=== PATIENT | female | born 1960 | race Caucasian/White ===

== ENCOUNTER 2016-10-05 17:43 | Observation (INO) ==
--- NOTE | 2016-10-05 19:42 | Emergency Department Note ---
Disposition Clinical Impression: Pain in right leg Deep vein thrombosis of lower extremity Qualifiers: Affected thrombotic vein of extremity: popliteal Chronicity: acute Laterality: right Qualified Code(s): I82.431 - Acute embolism and thrombosis of right popliteal vein GI bleed Qualifiers: GI bleed type/associated pathology: unspecified gastrointestinal hemorrhage type Qualified Code(s): K92.2 - Gastrointestinal hemorrhage, unspecified Disposition: Admitted As Inpatient Condition: Good Instructions: Deep Venous Thrombosis (ED) Reasons to Return/Additional Instructions: Please follow closely with your primary care provider. Please take all medications as they are prescribed. If you are concerned about your medical condition or if your symptoms change please return immediately to the emergency room for repeat evaluation. Please follow the return precautions that were discussed in great detail here in the emergency room prior to you being discharged home. Please take all of your home medications as they are prescribed. Please be sure to keep a close eye on her bowel movements looking for dark stool or blood. Please follow up with her primary care provider within the next 24-48 hours Referrals: Delonte Guillaume MD [Primary Care Provider] - Forms: ED Satisfaction Letter Time of Disposition: 21:07 Extremity Problem HPI - General Chief complaint: ED Extremity Problem,Nontraumatic Stated complaint: pain in right leg r/o DVT Time Seen by Provider: 10/05/16 18:30 Source: patient Mode of arrival: ambulatory Limitations: no limitations Nursing Notes Reviewed: Yes Vital Signs Reviewed: Yes - History of Present Illness HPI Narrative: Patient presents to emergency room with complaint of right leg pain. She is concerned about a blood clot in her leg. She was seen here several days ago and had a Doppler study completed at that time. The symptoms impalement getting worse. She denies any redness pain warmth or swelling over the leg that is significantly different than last time. She is a Oriental orthodox and want to make sure that she did not get a blood clot because she did not want to have a bleeding issue that would require medical intervention. Patient denies fevers chills nausea vomiting diarrhea headaches vision changes prior to these events here today. Pt Subjective Complaint: extremity pain Onset (ago): day(s) Consistency: constant Injury Location: right, lower extremity Pain Scale: 8 Quality: aching Radiation: distal Improves with: nothing Worsens with: range of motion, walking, palpation Associated symptoms: Reports: denies other symptoms - Related Data Previous Rx's Medication Instructions Recorded Naproxen [Naprosyn] 500 mg PO BID PRN #20 tablet 09/23/16 Allergies Allergy/AdvReac Type Severity Reaction Status Date / Time codeine Allergy Difficulty Verified 10/05/16 17:44 Breathing propoxyphene Allergy Difficulty Verified 10/05/16 17:44 Breathing Sulfa (Sulfonamide Allergy Difficulty Verified 10/05/16 17:44 Antibiotics) Breathing tramadol Allergy Difficulty Verified 10/05/16 17:44 Breathing naproxen AdvReac See Verified 10/05/16 17:45 Comments All systems ED: reviewed and negative except as stated. Review of Systems: As Per HPI Constitutional: Denies: fever, chills Cardiovascular: Denies: chest pain, palpitations, dyspnea on exertion, orthopnea Respiratory: Denies: cough, dyspnea, wheezes Gastrointestinal: Denies: abdominal pain, nausea, vomiting, diarrhea Genitourinary: Denies: urgency, dysuria Musculoskeletal: Reports: joint swelling. Denies: back pain, neck pain Integumentary: Denies: rash, abrasion, lesions Neurological: Denies: headache Psychiatric: Denies: anxiety Hematological/Lymphatic: Denies: easy bleeding Past Medical History - Past Medical History Attestation: Yes The following information was validated with the patient. Source: patient Medical history: Reports: asthma, coronary artery disease, GERD, thyroid disease Surgical history: Reports: splenectomy Psychiatric history: Reports: anxiety, depression - Social History Smoking Status: Never smoker Smokeless Tobacco Status: No Alcohol use: Reports: none Drug use: Reports: none Physical Exam - General Limitations: no limitations General appearance: alert - Head Head exam: atraumatic, normocephalic, normal inspection - Neck Neck exam: Present: normal inspection, full ROM, trachea midline - Chest Chest inspection: Present: normal inspection, symmetric chest wall rise. Absent : tenderness - Respiratory Respiratory exam: Present: normal lung sounds bilaterally. Absent: respiratory distress, accessory muscle use - Cardiovascular Cardiovascular exam: Present: regular rate, normal rhythm, normal heart sounds - Abdominal Exam Abdominal exam: Present: soft, Non-Tender, normal bowel sounds. Absent: tenderness, distention, guarding, rebound, rigidity, Yates's sign, Rovsing's sign, tenderness at McBurney's Point - Extremities Exam Extremities exam: Present: normal inspection, full ROM, normal capillary refill , calf tenderness. Absent: tenderness - Back Exam Back exam: Present: normal inspection, full ROM. Absent: tenderness, CVA tenderness (R), CVA tenderness (L) - Neurological Exam Neurological exam: Present: alert, oriented X3, CN II-XII intact, normal gait - Skin Skin exam: Present: warm, dry, intact, normal color Course Course Narrative: Patient seen and examined the time of arrival. See history of present illness. 56-year-old female presents with pain in her right calf. She has been seen here twice for the same issue over the last 1 week. She was evaluated for deep venous thrombosis because she is concerned about a blood clot in her leg. Initial Doppler study at that time was read as negative. She is back here tonight with new palpable pain in the lateral aspect of the calf as well as in the medial aspect of the palpable cord that is noted. She does have tenderness directly over that area. Otherwise there is no redness swelling irritation noted to the extremity. She has no gross deformity or injury. Based on the symptoms being present for approximately a week at this time. Repeat ultrasound ordered to make sure that there was not any progression or change in the presentation at this time. Otherwise patient has stable vital signs. No other clinical evaluation needed. Currently she is denying chest pain shortness of breath headache vision changes nausea vomiting or diarrhea. Denies any other complaints or issues at this time. - Reevaluation(s) Reevaluation #1: Ultrasound study was read as positive for acute DVT in the right popliteal region of the catheter. Patient had screening labs completed this time including Hemoccult testing secondary to dark colored stool over the last week. Patient otherwise denies any other acute bleeding or issues at this point. If the testing studies come back negative the patient will be started on anticoagulation therapy for home and close follow-up with PCP. Patient family and I discussed this in great detail. Again she is a Oriental orthodox so being conservative with reading related issues is priority for her at this time. No other concerns or issues noted at this point. Disposition pending laboratory workup Time: 20:48 Reevaluation #2: Patient has Hemoccult-positive stool. Will be admitted at this time for evaluation with possible endoscopy and then anticoagulation therapy secondary to the DVT. Time: 21:02 Reevaluation #3: pt discussed with dr. fagan. Review the presentation symptoms and the confounding issues with the GI bleed and DVT. Reviewed the presentation symptoms and the vital signs in the emergency room. He is going to evaluate the patient done in the emergency room. No other recommendations at this time. We will monitor here in the emergency room to the admission process is completed Time: 21:16 Vital Signs Temperature 97.7 F 10/05/16 17:46 Pulse Rate 73 10/05/16 17:46 Respiratory Rate 20 10/05/16 17:46 Blood Pressure 113/78 10/05/16 17:46 O2 Sat by Pulse Oximetry 97 10/05/16 17:46 Temperature 97.7 F 10/05/16 17:46 Pulse Rate 73 10/05/16 17:46 Respiratory Rate 20 10/05/16 17:46 Blood Pressure 113/78 10/05/16 17:46 O2 Sat by Pulse Oximetry 97 10/05/16 17:46 Oxygen Delivery Oxygen Delivery Room Air Extremity Problem, Nontraumati - MDM Narrative Medical decision making narrative: Right lower extremity DVT - Medical Records Medical records reviewed: Yes I reviewed the patient's medical records. - Lab Data Lab results reviewed: Yes I reviewed the patient's lab results. - Radiology Data Radiology results reviewed: Yes I reviewed the patient's radiology results. Ultrasound imaging of the right lower cavity shows positive acute DVT in the right popliteal distribution Critical Care Time Critical Care Time: Yes Total Critical Care Time: 35 Attestation: Critical care performed: Time is exclusive of separately billable procedures. Time includes: direct patient care, patient reassessment, coordination of patient care, interpretation of data (laboratory data, radiology data, and respiratory data), review of patient's medical records, medical consultation and documentation of patient care. Procedures included in critical care time: Procedures excluded from critical care time:
[2016-10-05 20:10] LABS: Basophils # 0.1 K/mcL (0.0-0.2); Basophils % 0.4 %; Eosinophils # 0.5 K/mcL (0.0-0.6); Eosinophils % 2.9 %; Hematocrit 38.9 % (35.3-44.9); Hemoglobin 12.7 g/dL (11.5-15.4); Immature Granulocytes % 0.6 % (0-4); Lymphocytes # 5.7 K/mcL (0.6-4.6); Lymphocytes % 36.4 %; Mean Corpuscular HGB Conc 32.6 g/dL (31.6-35.5); Mean Corpuscular Hemoglobin 29.3 pg (28.0-33.3); Mean Corpuscular Volume 89.8 fL (83.0-100.0); Mean Platelet Volume 10.3 fL (9.4-12.4); Monocytes # 1.2 K/mcL (0.0-1.3); Monocytes % 7.6 %; Neutrophils # 8.2 K/mcL (1.6-8.9); Platelet Count 374 K/mcL (140-400); Red Blood Count 4.33 M/mcL (3.82-4.97); Red Cell Distribution Width 15.1 % (11.5-14.5); Segmented Neutrophils % 52.1 %
[2016-10-05 20:12] LABS: INR 1.1; Prothrombin Time 11.7 Seconds (9.4-12.1)
[2016-10-05 20:15] LABS: Activated Partial Thrombo Time 29.3 Seconds (26.0-36.0)
[2016-10-05 20:19] LABS: Calcium 9.9 mg/dL (8.6-10.8); Potassium 4.4 mEq/L (3.5-4.5)
[2016-10-05] MEDS ORDERED: Pantoprazole 80 MG in 0.9 % Sodium Chloride 50 ML IVPB ONE (21:06)
[2016-10-05] MEDS ORDERED: Naloxone 0.4 MG/ML INJ IVP PRN (22:13)
[2016-10-05] MEDS ORDERED: *HR* Morphine 2 MG/ML SYRINGE IVP PRN (22:17)
--- NOTE | 2016-10-05 22:26 | Internal Med History&Physical ---
<Marina Buck - Last Filed: 10/05/16 22:59> Date of Encounter: 10/05/16 Time of Encounter: 22:25 Assessment and Plan (1) Deep vein thrombosis of lower extremity Current visit: Yes Status: Acute Patient reporting RLE pain and swelling. Venous doppler revealed acute DVT in right popliteal and anterior tibial veins. Patient also with suspected GI bleed with +FOB. Will plan to start anticoagulation once endoscopy rules out active bleed. Surgery has been consulted for endoscopy. Continuous patient services assistant. Qualifiers: Affected thrombotic vein of extremity: popliteal Chronicity: acute Laterality: right Qualified Code(s): I82.431 - Acute embolism and thrombosis of right popliteal vein (2) GI bleed Current visit: Yes Status: Acute Patient reports that after starting naproxen, she had an episode of abdominal cramping followed by a large amount of bright red bloody bowel movement on September 23. She stopped taking the Naproxen at that time. She has had diarrhea since then, which is normal for her, but has not noted any more episodes of bright red blood. Fecal occult blood was positive. Hgb stable at 12.7. Hold aspirin, NSAIDs. Protonix 80mg given in ED. Continue with 40mg IVP BID. Surgery consulted for endoscopy urgently as patient needs anticoagulation treatment for acute DVT. Patient is [employer] and will not accept blood products. Qualifiers: GI bleed type/associated pathology: unspecified gastrointestinal hemorrhage type Qualified Code(s): K92.2 - Gastrointestinal hemorrhage, unspecified (3) LATHA (acute kidney injury) Current visit: Yes Status: Acute Creatinine of 1.25 today up from previous value of 0.92. Patient was started on metoprolol-HCTZ in August and this may be secondary to diuresis. Will hydrate with 0.9NS at 125mL/hr. Hold NSAIDs and nephrotoxins, hold HCTZ. Recheck chemistry in the morning. (4) CAD (coronary artery disease) Current visit: Yes Status: Acute Patietn had LHC in 2012 which revealed mild-moderate coronary artery atherosclerosis. 40% stenosis in mid-LAD. She did not require PCI. She has recently seen Dr. Jarrett in cardiology and she takes Metoprolol-HCTZ, statin and aspirin. Hold aspirin for suspected GI bleed. Once taking PO, continue home dose of metoprolol and statin. Qualifiers: Coronary Disease-Associated Artery/Lesion type: teller artery [place] vs. transplanted heart: teller heart Associated angina: angina presence unspecified Qualified Code(s): I25.10 - Atherosclerotic heart disease of teller coronary artery without angina pectoris (5) DVT prophylaxis Current visit: Yes Status: Acute Patient has acute DVT in RLE, but also suspected GI bleed. Will start anticoagulation after endoscopy rules out acute bleed. Internal Medicine - H&P: HPI Chief complaint: leg pain Admitted From: Emergency Dept Plans for Post Hospital Care: Home History of present illness: Ms. Concepcion is a 56 year old female with hypertension, hyperlipidemia, coronary artery disease GERD, hypothyroid, presented to the emergency department today with complaints of right lower extremity pain and swelling. Patient reports that she injured her foot a few weeks ago, she thinks it got slammed in a car door, but she also remembers stepping on it wrong, cough.. After this injury she had some swelling and pain in her leg for which she was treated with naproxen. She reports that when she started taking the naproxen on September 23, she had an episode of bright red bloody bowel movement. After that she stop taking the naproxen and she reports her stools returned to normal. Patient continued to have pain and swelling in her right leg, and added To 3 days ago, at that time ultrasound was negative for DVT. She returned again today, and ultrasound was positive for acute right lower extremity DVT. Patient reports occasional lightheadedness, occasional nausea, diarrhea, occasional chest pain, all these symptoms are chronic and have been occurring for years. She reports she has had several colonoscopies in the past related to her diarrhea, nothing significant was found other than polyps, and a "torturous colon". Evaluation in emergency department revealed elevated white blood cell count of 15.8. Doppler of the lower extremity revealed acute DVT of the popliteal and anterior tibial veins. Creatinine was elevated to 1.25 above previous value of 0.92. Patient denies any history of chronic kidney disease. Fecal occult blood was positive. On exam, patient alert and oriented, in no acute distress. Heart had regular rate and rhythm lungs sounded clear bilaterally. Abdomen soft with positive bowel sounds, some tenderness in the right lower quadrant. Right lower extremity with tenderness to palpation in the popliteal area. Past Med Surg Social Fam HX - Past Medical History Medical history: asthma, coronary artery disease, GERD, thyroid disease Psychiatric history: anxiety, depression - Past Surgical History Surgical History: splenectomy, vascular surgery (vein stripping) - Social History Smoking Status: Former smoker (50 pack year history) Smokeless Tobacco Status: No Alcohol use: none Drug use: none - Family History Mother Living Status: Still Living Hx Family Cardiac Disorders: Yes Hx Family Cancer: Yes (colon) Father Living Status: Hx Family Cardiac Disorders: Yes Brother Living Status: Still Living Hx Family Cardiac Disorders: Yes (DVTs) Internal Medicine - H&P: Meds Aspirin [Lo-Dose Aspirin EC] 81 mg PO DAILY 10/05/16 [History] BuPROPion XL (24 HR) [Wellbutrin XL] 150 mg PO DAILY 10/05/16 [History] Calcium Carbonate/Vitamin D3 [Calcium 500 + Vit D Caplet] 1 each PO DAILY [History] Cetirizine HCl [All Day Allergy] 10 mg PO DAILY 10/05/16 [History] Famotidine [Pepcid] 40 mg PO DAILY 10/05/16 [History] Ibuprofen [Motrin] 200 mg PO Q4HR PRN 10/05/16 [History] Levothyroxine Sodium 75 mcg PO 0630 10/05/16 [History] Metoprolol Succinate/Hctz [Dutoprol 25-12.5 mg Tablet] 0.5 tab PO BID 10/05/16 [ History] Pantoprazole Sodium [Protonix] 40 mg PO DAILY 10/05/16 [History] Pravastatin Sodium [Pravachol] 20 mg PO HS 10/05/16 [History] Allergies codeine Allergy (Verified 10/05/16 17:44) Difficulty Breathing propoxyphene Allergy (Verified 10/05/16 17:44) Difficulty Breathing Sulfa (Sulfonamide Antibiotics) Allergy (Verified 10/05/16 17:44) Difficulty Breathing tramadol Allergy (Verified 10/05/16 17:44) Difficulty Breathing naproxen Adverse Reaction (Verified 10/05/16 17:45) See Comments blood in stool All Systems PM: A 10-system review of systems was performed and is negative for pertinent findings except as documented above in the HPI. - Constitutional Constitutional: no chills, no fever(s), no night sweats - EENT Eyes: no change in vision, no discharge, no pain, no photophobia Ears: no ear discharge, no ear pain, no tinnitus Nose, mouth and throat: no dysphagia, no nasal discharge, no neck pain, no sore throat - Cardiovascular Cardiovascular ROS IM: no chest pain, no diaphoresis, no dyspnea, no lightheadedness, no palpitations, no syncope - Respiratory Respiratory: no cough, no dyspnea, no wheezing, no excessive phlegm production - Gastrointestinal Gastrointestinal: cramping, diarrhea (chronic), hematochezia (one episode on September 23), no abdominal pain, no hematemesis, no melena, no nausea, no vomiting - Genitourinary Genitourinary: no change in urinary stream, no dysuria, no flank pain, no hematuria - Musculoskeletal Musculoskeletal ROS IM: no numbness, no tingling Additional comments: RLE pain - Integumentary Integumentary IM: no rash, no unusual bruising - Neurological Neurological ROS: no confusion, no convulsions, no focal weakness, no numbness, no tingling, no tremor(s) - Hematologic/Lymphatic Hematologic/Lymphatic: no easy bruising - Constitutional Vitals: Temp Pulse Resp BP Pulse Ox 97.7 F 75 18 131/92 95 10/05/16 17:46 10/05/16 22:18 10/05/16 22:18 10/05/16 22:18 10/05/16 22:18 General appearance: Present: A&O X 3, pleasant, no acute distress - Head Head exam: Present: atraumatic, normocephalic - Eye Eye exam: Present: PERRL, conjuntiva pink, sclera anicteric Pupils: Present: PERRL - Neck Neck exam general surgery: Present: supple, trachea midline. Absent: lymphadenopathy - Respiratory Respiratory exam: Present: CTAB. Absent: accessory muscle use, rales, rhonchi, wheezes - Cardiovascular Cardiovascular exam: Present: RRR, +S1, +S2. Absent: diastolic murmur, gallop, rubs, systolic murmur - GI/Abdominal GI/Abdominal exam: Present: normal bowel sounds, soft, tenderness (RLQ), no peritoneal signs. Absent: distended - Extremities Exam Extremities exam: Present: calf tenderness (RLE), warm, radial pulses palpable and symetrical. Absent: cyanotic, pedal edema - Neurological Exam Neurological exam: Present: CN II-XII intact, oriented X3, no focal deficits. Absent: facial droop, speech deficit - Skin Skin exam: Present: dry, intact Internal Med - H&P Results - Labs CBC & Chem 7: 10/05/16 19:55 10/05/16 19:55 Labs: All Lab Results (24 Hours) 10/05/16 10/05/16 10/05/16 Range/Units 19:55 19:55 19:55 WBC 15.8 H (4.3-11.1) K/mcL RBC 4.33 (3.82-4.97) M/mcL Hgb 12.7 (11.5-15.4) g/dL Hct 38.9 (35.3-44.9) % MCV 89.8 (83.0-100.0) fL MCH 29.3 (28.0-33.3) pg MCHC 32.6 (31.6-35.5) g/dL RDW 15.1 H (11.5-14.5) % Plt Count 374 (140-400) K/mcL MPV 10.3 (9.4-12.4) fL Immature Gran % 0.6 (0-4) % Seg Neutrophils % 52.1 % Lymphocytes % 36.4 % Monocytes % 7.6 % Eosinophils % 2.9 % Basophils % 0.4 % Neutrophils # 8.2 (1.6-8.9) K/mcL Lymphocytes # 5.7 H (0.6-4.6) K/mcL Monocytes # 1.2 (0.0-1.3) K/mcL Eosinophils # 0.5 (0.0-0.6) K/mcL Basophils # 0.1 (0.0-0.2) K/mcL PT 11.7 (9.4-12.1) Seconds INR 1.1 APTT 29.3 (26.0-36.0) Seconds Sodium 140 (136-145) mEq/L Potassium 4.4 (3.5-4.5) mEq/L Chloride 105 (98-109) mEq/L Carbon Dioxide 26 (19-29) mEq/L BUN 19 (7-20) mg/dL Creatinine 1.25 H (0.57-1.11) mg/dL Est GFR ( Amer) 54 L (> 60) Est GFR (Non-Af Amer) 44 L (> 60) BUN/Creatinine Ratio 15 (6-26) Glucose 91 (70-99) mg/dL Calculated Osmolality 292 (280-300) Calcium 9.9 (8.6-10.8) mg/dL Stool Occult Blood (Negative) 10/05/16 Range/Units 20:28 WBC (4.3-11.1) K/mcL RBC (3.82-4.97) M/mcL Hgb (11.5-15.4) g/dL Hct (35.3-44.9) % MCV (83.0-100.0) fL MCH (28.0-33.3) pg MCHC (31.6-35.5) g/dL RDW (11.5-14.5) % Plt Count (140-400) K/mcL MPV (9.4-12.4) fL Immature Gran % (0-4) % Seg Neutrophils % % Lymphocytes % % Monocytes % % Eosinophils % % Basophils % % Neutrophils # (1.6-8.9) K/mcL Lymphocytes # (0.6-4.6) K/mcL Monocytes # (0.0-1.3) K/mcL Eosinophils # (0.0-0.6) K/mcL Basophils # (0.0-0.2) K/mcL PT (9.4-12.1) Seconds INR APTT (26.0-36.0) Seconds Sodium (136-145) mEq/L Potassium (3.5-4.5) mEq/L Chloride (98-109) mEq/L Carbon Dioxide (19-29) mEq/L BUN (7-20) mg/dL Creatinine (0.57-1.11) mg/dL Est GFR ( Amer) (> 60) Est GFR (Non-Af Amer) (> 60) BUN/Creatinine Ratio (6-26) Glucose (70-99) mg/dL Calculated Osmolality (280-300) Calcium (8.6-10.8) mg/dL Stool Occult Blood Positive A (Negative) <Shoaib Patrick - Last Filed: 10/06/16 05:58> Date of Encounter: 10/06/16 Internal Medicine - H&P: HPI History of present illness: Ms. Taulbee is a 56 year old female All Systems PM: A 10-system review of systems was performed and is negative for pertinent findings except as documented above in the HPI. - Constitutional Vitals: Temp Pulse Resp BP Pulse Ox 98.2 F 74 18 95/59 95 10/06/16 05:33 10/06/16 05:33 10/06/16 05:33 10/06/16 05:33 10/06/16 05:33 Internal Med - H&P Results - Labs CBC & Chem 7: 10/06/16 00:59 10/06/16 00:59 Labs: Short CBC 10/06/16 Range/Units 00:59 WBC 15.0 H (4.3-11.1) K/mcL Hgb 12.7 (11.5-15.4) g/dL Hct 37.7 (35.3-44.9) % Plt Count 347 (140-400) K/mcL Neutrophils # 8.5 (1.6-8.9) K/mcL BMP 10/06/16 00:59 Sodium 140 Potassium 3.7 Chloride 106 Carbon Dioxide 25 BUN 17 Creatinine 1.07 Glucose 92 Calcium 9.4 - Attending Attestation I independently obtained history and examined this patient and my medical decision-making was reviewed with the nurse practitioner, Marina Buck. I agree with the documented findings, disposition and treatment plan as described. Please see the event note from 10/05/2016 for further details.
--- NOTE | 2016-10-05 22:28 | Event Note ---
Date of Encounter: 10/05/16 Time of Encounter: 22:19 I independently obtained history and examined this patient and my medical decision-making was reviewed with the nurse practitioner, Marina Buck. I agree with the documented findings, disposition and treatment plan as described. My findings are summarized below: Patient presented to the hospital due to right lower extremity pain. She had a lower extremity Doppler venous ultrasound which shows findings concerning for superacute right lower extremity DVT in the popliteal vein. She tells me that 3 weeks ago she had been taking naproxen for foot pain and she started having severe abdominal pain followed by rectal bleeding which was described as large amount of dark blood with blood clots in it. She stopped taking the naproxen and per her reports that had resolved. Today she tested positive Hemoccult on fecal occult blood testing. Her vital signs are stable and her Hemoglobin is 12.8. Plan: Ms. Concepcion an acute right lower extremity DVT and the recent upper GI bleed as well as a positive Hemoccult. The positive Hemoccult could be a lingering effect of a resolved bleed such as from erosive gastritis caused by use of nonsteroidal anti-inflammatory drugs. It could also be related to a bleeding peptic ulcer. This is of more concern because the patient has had a history of duodenal ulcers and if this were the case anticoagulation for her acute DVT would be contraindicated. This is further complicated by the fact the patient is a Jehov[employer]'s witnesses and according to her convictions she would like to not have any blood or blood product transfusion. At this time I have discussed the case with Dr. Barnhart will evaluate the patient for emergent upper endoscopy to evaluate and diagnose the source of GI bleed. If the endoscopy result is negative we will start IV heparin for anticoagulation and monitor hemoglobin and hematocrit closely. If the endoscopy result is positive for acute or subacute bleeding then anticoagulation is contraindicated and we will plan for placement of an IVC filter in the morning. She is at high risk for morbidity and complications due to hyperacute DVT and acute versus subacute GI bleed possibly requiring emergent endoscopic procedure and intravenous anticoagulation.
[2016-10-05] MEDS ORDERED: *HR* FentaNYL (PF) 100 MCG/2 ML VIAL ONE (23:11)
[2016-10-05] MEDS ORDERED: *HR* Midazolam HCl 5 MG/5 ML VIAL IVP ONE (23:12)
[2016-10-05] MEDS ORDERED: 0.9 % Sodium Chloride 1,000 ML IVC SCH (23:15)
[2016-10-05] MEDS ORDERED: *HR* FentaNYL (PF) 100 MCG/2 ML VIAL IVP PRN (23:17)
[2016-10-05] MEDS ORDERED: *HR* Midazolam HCl 5 MG/5 ML VIAL IVP PRN (23:17)
[2016-10-05] MEDS ORDERED: Tetracaine/Benzocaine/Butamben 200MG/SPRAY (100SPY/BOT) MM ONE (23:17)
--- NOTE | 2016-10-05 23:17 | Pre-Sedation Evaluation ---
Pre-sedation evaluation - Pre-sedation checklist Date of procedure: 10/05/16 Recent Vitals: Last Vital Signs Temp 97.8 F 10/05/16 23:08 Pulse 85 10/05/16 23:08 Resp 16 10/05/16 23:08 BP 136/82 10/05/16 23:08 Pulse Ox 98 10/05/16 23:08 H&P (including ROS) documented in medical record: Yes Previous reaction to sedatives/anesthetics: No Dietary Status: NPO after Midnight Airway Assessment: Patient can open mouth completely, TMJ function normal Dentition: dentures removed Possible difficult airway: No ASA Classification *see protocol: CLASS III-Severe systemic disease
[2016-10-05] MEDS: 0.9 % Sodium Chloride 1,000 ML IVC SCH (23:22)
--- NOTE | 2016-10-05 23:28 | Event Note ---
Date of Encounter: 10/05/16 Time of Encounter: 23:27 Hiatal hernia, otherwise normal egd to the 3 rd portion of the doudenum.
[2016-10-06] MEDS ORDERED: *HR* Heparin 5,000 UNIT/ML VIAL IVP PRN (01:01)
[2016-10-06] MEDS ORDERED: *HR* Heparin 5,000 UNIT/ML VIAL IVP ONE (01:01)
--- NOTE | 2016-10-06 01:06 | Event Note ---
Date of Encounter: 10/06/16 Time of Encounter: 01:05 Patient had upper endoscopy done emergently this evening. She tolerated the procedure well. Endoscopy revealed no evidence of upper GI bleed. Her Hemoccult could be related to a lower GI bleed or lingering effect of a result hemorrhagic gastritis and resulted by nonsteroidal anti-inflammatory drug use. At this point I do not have any strong concern for impending GI bleed and therefore I will start treatment with IV heparin for right lower extremity DVT.
[2016-10-06] MEDS: Heparin 25,000 UNIT/500 ML D5W 25,000 UNIT/500 ML MLS IVC SCH ×2 (01:52→21:45)
[2016-10-06 02:03] LABS: Basophils # 0.1 K/mcL (0.0-0.2); Basophils % 0.4 %; Eosinophils # 0.4 K/mcL (0.0-0.6); Eosinophils % 2.7 %; Hematocrit 37.7 % (35.3-44.9); Hemoglobin 12.7 g/dL (11.5-15.4); Immature Granulocytes % 0.4 % (0-4); Lymphocytes # 4.8 K/mcL (0.6-4.6); Lymphocytes % 32.3 %; Mean Corpuscular HGB Conc 33.7 g/dL (31.6-35.5); Mean Corpuscular Hemoglobin 30.2 pg (28.0-33.3); Mean Corpuscular Volume 89.5 fL (83.0-100.0); Monocytes # 1.1 K/mcL (0.0-1.3); Monocytes % 7.2 %; Neutrophils # 8.5 K/mcL (1.6-8.9); Platelet Count 347 K/mcL (140-400); Red Blood Count 4.21 M/mcL (3.82-4.97); Red Cell Distribution Width 15.3 % (11.5-14.5)
[2016-10-06 02:13] LABS: INR 1.1; Prothrombin Time 11.6 Seconds (9.4-12.1)
[2016-10-06 02:15] LABS: Activated Partial Thrombo Time 24.3 Seconds (26.0-36.0)
[2016-10-06 02:29] LABS: BUN/Creatinine Ratio 16 (6-26); Blood Urea Nitrogen 17 mg/dL (7-20); Calcium 9.4 mg/dL (8.6-10.8); Carbon Dioxide 25 mEq/L (19-29); Chloride 106 mEq/L (98-109); Glucose 92 mg/dL (70-99); Osmolality,Calculated 291 (280-300); Potassium 3.7 mEq/L (3.5-4.5); Sodium 140 mEq/L (136-145); eGFR For African Americans > 60 (> 60); eGFR For Non-African Americans 53 (> 60)
[2016-10-06] MEDS ORDERED: Pantoprazole 40 MG VIAL IVP SCH (07:30)
[2016-10-06] MEDS: BuPROPion XL (24 HR) 150 MG TABLET PO SCH (07:51)
[2016-10-06 08:30] LABS: Activated Partial Thrombo Time 149.5 Seconds (26.0-36.0)
[2016-10-06 08:36] LABS: Hematocrit 38.4 % (35.3-44.9); Hemoglobin 12.4 g/dL (11.5-15.4)
[2016-10-06 08:47] LABS: Heparin anti-factor XA UFH 0.96 IU/mL (0.30-0.70)
[2016-10-06] MEDS: 0.9 % Sodium Chloride 1,000 ML IVC SCH (10:11)
--- NOTE | 2016-10-06 10:47 | Internal Med Progress Note ---
<Josef Sotomayor - Last Filed: 10/06/16 10:44> Date of Encounter: 10/06/16 Time of Encounter: 10:45 - Assessment and plan (1) Deep vein thrombosis of lower extremity Current Visit: Yes Status: Acute Assessment and plan: Patient reporting RLE pain and swelling. -Venous doppler revealed acute DVT in right popliteal and anterior tibial veins. -Patient states that her leg is still swollen, but the initial redness is gone. -There is still tenderness to palpation in the popliteal region in the right lower extremity. -Continue heparin. -Continuous cardiac care unit nurse. Qualifiers: Affected thrombotic vein of extremity: popliteal Chronicity: acute Laterality: right Qualified Code(s): I82.431 - Acute embolism and thrombosis of right popliteal vein (2) DVT prophylaxis Current Visit: Yes Status: Acute Assessment and plan: Patient has acute DVT in the right lower extremity. Patient is currently on heparin. (3) LATHA (acute kidney injury) Current Visit: Yes Status: Acute Assessment and plan: Patient's creatinine initially shamir to 1.25 from a previous of 0.92. -However, patient's creatinine this morning was 1.07. -Hydrochlorothiazide and aspirin have been held. (4) CAD (coronary artery disease) Current Visit: Yes Status: Acute Assessment and plan: Patient had left heart catheterization in 2012. -Showed 40% stenosis in the mid LAD. -Do not require PCI -Patient takes metoprololhydrochlorothiazide, statin, and aspirin. -Patient states that she does not like her statin due to the fact that it causes muscle soreness. Qualifiers: Coronary Disease-Associated Artery/Lesion type: [place] artery [place] vs. transplanted heart: unga heart Associated angina: angina presence unspecified Qualified Code(s): I25.10 - Atherosclerotic heart disease of [place] coronary artery without angina pectoris (5) GI bleed Current Visit: Yes Status: Acute Assessment and plan: Patient reports that after starting naproxen, she had an episode of abdominal cramping followed by a large amount of bright red bloody bowel movement on September 23. After she stopped taking, patient denied having any blood in her stool. Patient 's hemoglobin today is 12.7. Hold aspirin, NSAIDs. Protonix 80mg given in ED. Continue with 40mg IVP BID. Endoscopy was performed, which showed no evidence of a GI bleed. Patient also expressed that she might need another colonoscopy, since her mother has colon cancer. Her last colonoscopy was last year, which was clear. She does state however that on her first colonoscopy, a number of polyps were found. Patient is Muslim and will not accept blood products. Qualifiers: GI bleed type/associated pathology: unspecified gastrointestinal hemorrhage type Qualified Code(s): K92.2 - Gastrointestinal hemorrhage, unspecified - Subjective Interval history: Patient was seen and examined at bedside this morning. Patient states that she does feel some pain in her leg and that there is swelling present, but the redness that was initially present has since subsided. She also states that when she goes to use the toilet when she stands up she felt weak. She denied having any dizziness or lightheadedness. Patient also complains of some right lower quadrant abdominal pain that is reproduced by palpation, which she describes as a sharp pain. This pain however has been there for many years. Patient states that his pain is not present at rest and only exists when she presses on her lower abdomen. She currently denies any nausea, vomiting, numbness, tingling, or shortness of breath. Patient has no other complaints at this time. - Constitutional Vitals: Temp Pulse Resp BP Pulse Ox 98.6 F 75 16 110/73 95 10/06/16 08:09 10/06/16 08:09 10/06/16 08:09 10/06/16 08:09 10/06/16 08:09 General appearance: Present: A&O X 3, pleasant, no acute distress - ENT ENT exam: Present: mucous membranes moist - Respiratory Respiratory exam: Present: CTAB. Absent: accessory muscle use, rales, rhonchi, wheezes - Cardiovascular Cardiovascular exam: Present: RRR, +S1, +S2. Absent: diastolic murmur, gallop, rubs, systolic murmur - Expanded Lower Extremities Exam Lower Leg exam: Present: swelling, tenderness (Patient has swelling and tenderness in her left leg in the region behind her knee. ) - Psychiatric Psychiatric exam: Present: normal affect, normal mood - Skin Skin exam: Present: dry, intact Internal Medicine: Result - Labs CBC & Chem 7: 10/06/16 07:43 10/06/16 00:59 Labs: Short CBC 10/06/16 10/06/16 Range/Units 00:59 07:43 WBC 15.0 H (4.3-11.1) K/mcL Hgb 12.7 12.4 (11.5-15.4) g/dL Hct 37.7 38.4 (35.3-44.9) % Plt Count 347 (140-400) K/mcL Neutrophils # 8.5 (1.6-8.9) K/mcL BMP 10/06/16 00:59 Sodium 140 Potassium 3.7 Chloride 106 Carbon Dioxide 25 BUN 17 Creatinine 1.07 Glucose 92 Calcium 9.4 - ABG Interpretation ABG results: PT/INR, D-dimer PT 11.6 Seconds (9.4-12.1) 10/06/16 01:16 Consult Discharge Plan - Plan Referrals: Delonte Guillaume MD [Primary Care Provider] - (web request 10/06/2016) <Js Chapin - Last Filed: 10/06/16 16:55> Date of Encounter: 10/06/16 - Assessment and plan (1) Deep vein thrombosis of lower extremity Current Visit: Yes Status: Acute Qualifiers: Affected thrombotic vein of extremity: popliteal Chronicity: acute Laterality: right Qualified Code(s): I82.431 - Acute embolism and thrombosis of right popliteal vein (2) LATHA (acute kidney injury) Current Visit: Yes Status: Acute (3) CAD (coronary artery disease) Current Visit: Yes Status: Acute Qualifiers: Coronary Disease-Associated Artery/Lesion type: [place] artery [place] vs. transplanted heart: [place] heart Associated angina: angina presence unspecified Qualified Code(s): I25.10 - Atherosclerotic heart disease of [place] coronary artery without angina pectoris (4) GI bleed Current Visit: Yes Status: Resolved Qualifiers: GI bleed type/associated pathology: melena Qualified Code(s): K92.1 - Melena - Constitutional Vitals: Temp Pulse Resp BP Pulse Ox 97.3 F L 87 18 104/67 95 10/06/16 16:02 10/06/16 16:02 10/06/16 16:02 10/06/16 16:02 10/06/16 16:02 Internal Medicine: Result - Labs CBC & Chem 7: 10/06/16 14:54 10/06/16 00:59 Labs: Short CBC 10/06/16 10/06/1617 Range/Units 00:59 07:43 14:54 WBC 15.0 H (4.3-11.1) K/mcL Hgb 12.7 12.4 12.5 (11.5-15.4) g/dL Hct 37.7 38.4 37.2 (35.3-44.9) % Plt Count 347 (140-400) K/mcL Neutrophils # 8.5 (1.6-8.9) K/mcL BMP 10/06/16 00:59 Sodium 140 Potassium 3.7 Chloride 106 Carbon Dioxide 25 BUN 17 Creatinine 1.07 Glucose 92 Calcium 9.4 - ABG Interpretation ABG results: PT/INR, D-dimer PT 11.6 Seconds (9.4-12.1) 10/06/16 01:16 - Attending Attestation I examined this patient and my medical decision-making was reviewed with the Resident Physician on 10/06/16. I agree with the documented findings, disposition and treatment plan as described except to the extent set forth below. Ms Concepcion is currently in observation for acute R popliteal DVT. She is moderate to high risk due to potential for worsening issues with bleeding and clot. Ms. Concepcion is having some issues with weakness when standing. She says leg pain is improving. She is currently on heparin drip. No melena or hematochezia noted. Having discomfort R lower abdomen but present for years. Exam Alert. Comfortable at this time Mucus membranes moist Heart reg No wheeze Abd soft - discomfort in area of R adnexa. I/P 1. R popliteal DVT - on IV heparin 2. EGD negative for bleeding 3. H/H stable At this point will keep patient on heparin and check H/H again. If stable can consider changing to PO med. If drops may need further GI workup as patient at risk for GI bleed and is Latter-day and won't have blood products if bleeds.
--- NOTE | 2016-10-06 14:44 | Venous Imaging Report ---
LE Venous Duplex Patient Name:Miriam Concepcion Order Number:[id number] Procedure Date:10/05/2016 Date:1960ge:56 yrs Gender:Female Location:[facility] ED Room #: ER25 Operations Associate:Carmen Barrientos RDCS Referring MD:Radu Tamayo DO career technical education instructor:Delonte Guillaume M.D. Reading MD:Mark Cespedes MD , FACS Primary Indications:Pain in limb Secondary Indications: Impressions: Right lower extremity: normal superficial exam. Lower extremity abnormal deep exam: right popliteal vein, anterior tibial vein, and gastrocnemius vein demonstrates acute thrombosis. Recommendations: Test completed on 10/05/2016 at 7:37:00 pm. Critical findings reported to Dr Tamayo in person at 7:38:00 pm on 10/05/2016 by Carmen Barrientos RDCS. Findings Venous Duplex Results: Right: Venous imaging of the lower extremity reveals full patency and normal vessel compressibility of the right distal iliac, right common femoral, right superficial femoral, right posterior tibial, right peroneal, right great saphenous and right lesser saphenous. Doppler signals in the evaluated veins were normal. There is an acute partially occlusive thrombus seen in the right popliteal. It demonstrates a partially compressible vein. Flow was phasic and it did augment. There is an acute partially occlusive thrombus seen in the right anterior tibial. It demonstrates a partially compressible vein. Flow was continuous and it did not augment. There is an acute occlusive thrombus seen in the right gastrocnemius. It demonstrates an incompressible vein. Flow was absent and it did not augment. Prior Study: Changes noted compared to prior study dated: 09/19/2016. Lower Extremity Venous Duplex Side Vein Compress Spontaneous Flow Augment Diameter (cm) Depth (cm) Right Distal Iliac Normal Yes Phasic Yes Right Common Femoral Normal Yes Phasic Yes Right Superficial Femoral Normal Yes Phasic Yes Right Popliteal Partial no Phasic yes Right Posterior Tibial Normal Yes Phasic Yes Right Anterior Tibial Partial no Continuous no Right Peroneal Normal Yes Phasic Yes Right Gastrocnemius None no Absent no Right Great Saphenous Normal Yes Phasic Yes Right Lesser Saphenous Normal Yes Phasic Yes Updated by Mark Cespedes MD, FACS on 10/06/2016 2:40:10 PM Mark Cespedes MD electronically signed on 10/06/2016 2:40:29 PM with status of Final
[2016-10-06 15:08] LABS: Hematocrit 37.2 % (35.3-44.9); Hemoglobin 12.5 g/dL (11.5-15.4)
[2016-10-06 21:04] LABS: Hematocrit 35.9 % (35.3-44.9); Hemoglobin 11.8 g/dL (11.5-15.4)
[2016-10-06] MEDS: *HR* Heparin 5,000 UNIT/ML VIAL IVP PRN (21:53)
[2016-10-07 04:18] LABS: Basophils # 0.1 K/mcL (0.0-0.2); Basophils % 0.5 %; Eosinophils # 0.4 K/mcL (0.0-0.6); Eosinophils % 2.8 %; Hematocrit 35.2 % (35.3-44.9); Hemoglobin 11.5 g/dL (11.5-15.4); Immature Granulocytes % 0.5 % (0-4); Lymphocytes # 6.4 K/mcL (0.6-4.6); Lymphocytes % 42.1 %; Mean Corpuscular HGB Conc 32.7 g/dL (31.6-35.5); Mean Corpuscular Hemoglobin 29.4 pg (28.0-33.3); Mean Platelet Volume 10.6 fL (9.4-12.4); Monocytes # 1.2 K/mcL (0.0-1.3); Monocytes % 8.1 %; Platelet Count 328 K/mcL (140-400); Red Blood Count 3.91 M/mcL (3.82-4.97); Red Cell Distribution Width 15.6 % (11.5-14.5)
[2016-10-07 04:33] LABS: INR 1.1; Prothrombin Time 12.3 Seconds (9.4-12.1)
[2016-10-07 04:37] LABS: Activated Partial Thrombo Time 106.7 Seconds (26.0-36.0)
[2016-10-07 05:19] LABS: BUN/Creatinine Ratio 15 (6-26); Blood Urea Nitrogen 14 mg/dL (7-20); Calcium 9.5 mg/dL (8.6-10.8); Carbon Dioxide 26 mEq/L (19-29); Chloride 108 mEq/L (98-109); Glucose 100 mg/dL (70-99); Osmolality,Calculated 293 (280-300); Potassium 4.3 mEq/L (3.5-4.5); Sodium 141 mEq/L (136-145); eGFR For African Americans > 60 (> 60); eGFR For Non-African Americans > 60 (> 60)
[2016-10-07] MEDS ORDERED: Pantoprazole 40 MG VIAL IVP SCH (07:30)
[2016-10-07] MEDS: BuPROPion XL (24 HR) 150 MG TABLET PO SCH (09:15)
--- NOTE | 2016-10-07 11:53 | Discharge Summary ---
<Josef Sotomayor - Last Filed: 10/07/16 11:51> Date of Encounter: 10/07/16 - Discharge Diagnosis (1) Deep vein thrombosis of lower extremity Status: Acute Qualifiers: Affected thrombotic vein of extremity: popliteal Chronicity: acute Laterality: right Qualified Code(s): I82.431 - Acute embolism and thrombosis of right popliteal vein (2) DVT prophylaxis Status: Acute (3) LATHA (acute kidney injury) Status: Acute (4) CAD (coronary artery disease) Status: Acute Qualifiers: Coronary Disease-Associated Artery/Lesion type: [place] artery [place] vs. transplanted heart: [place] heart Associated angina: angina presence unspecified Qualified Code(s): I25.10 - Atherosclerotic heart disease of [place] coronary artery without angina pectoris (5) GI bleed Status: Resolved Qualifiers: GI bleed type/associated pathology: melena Qualified Code(s): K92.1 - Melena - Discharge Medications Prescriptions: Apixaban [Eliquis] 5 mg PO BID #70 tablet Levofloxacin [Levaquin] 750 mg PO DAILY #3 tablet Home Medications: Aspirin [Lo-Dose Aspirin EC] 81 mg PO DAILY 10/05/16 [History] BuPROPion XL (24 HR) [Wellbutrin Xl] 150 mg PO DAILY 10/05/16 [History] Calcium Carbonate/Vitamin D3 [Calcium 500 + Vit D Caplet] 1 each PO DAILY [History] Cetirizine HCl [All Day Allergy] 10 mg PO DAILY 10/05/16 [History] Famotidine [Pepcid] 40 mg PO DAILY 10/05/16 [History] Ibuprofen [Motrin] 200 mg PO Q4HR PRN 10/05/16 [History] Levothyroxine Sodium 75 mcg PO 0630 10/05/16 [History] Metoprolol Succinate/Hctz [Dutoprol 25-12.5 mg Tablet] 0.5 tab PO BID 10/05/16 [ History] Pantoprazole Sodium [Protonix] 40 mg PO DAILY 10/05/16 [History] Pravastatin Sodium [Pravachol] 20 mg PO HS 10/05/16 [History] Apixaban [Eliquis] 5 mg PO BID #70 tablet 10/11/16 [Rx] Levofloxacin [Levaquin] 750 mg PO DAILY #3 tablet 10/11/16 [Rx] Allergies/Adverse Reactions: Allergies codeine Allergy (Verified 10/05/16 17:44) Difficulty Breathing propoxyphene Allergy (Verified 10/05/16 17:44) Difficulty Breathing Sulfa (Sulfonamide Antibiotics) Allergy (Verified 10/05/16 17:44) Difficulty Breathing tramadol Allergy (Verified 10/05/16 17:44) Difficulty Breathing naproxen Adverse Reaction (Verified 10/05/16 17:45) See Comments blood in stool Date of admission: 10/05/16 21:29 Primary care physician: Delonte Guillaume MD Consults: 10/05/16 22:19 Consult to Surgery [CONS] Routine Consulting Provider: [facility] Reason for Consult: Suspected GI bleed in patient with acute DVT and need for anticoagulation. FOB +. Latter day and will not accept blood products. Call Completed: Yes - Patient Status Disposition: Home, Self-Care Condition: Good - Discharge Instructions Instructions: Apixaban (By mouth), Deep Venous Thrombosis (DC) Follow Up With: Delonte Guillaume MD [Primary Care Provider] - 10/13/16 3:15 pm (web request 2016) Additional Instructions: follow up with PCP within one week of discharge. Please take Eliquis as prescribed. Take two tabs twice a day for the first seven days, and one tab twice a day thereafter. Take all medications as prescribed. Finish course of levaquin for UTI please return to emergency department if you develop signs of bleeding, chest pain, or shortness of breath. Hospital course: Ms. Concepcion is a 56 year old female - Time Spent with Patient Total time spent providing and/or coordinating discharge services: - Constitutional Vitals: Temp Pulse Resp BP Pulse Ox 97.9 F 88 16 113/77 96 10/07/16 07:08 10/07/16 07:08 10/07/16 07:08 10/07/16 07:08 10/07/16 07:08 General appearance: Present: A&O X 3, pleasant, no acute distress <Sea Kirk - Last Filed: 10/11/16 14:17> Date of Encounter: 10/11/16 Time of Encounter: 06:45 - Discharge Diagnosis (1) Deep vein thrombosis of lower extremity Priority: Primary Status: Acute Qualifiers: Affected thrombotic vein of extremity: popliteal Chronicity: acute Laterality: right Qualified Code(s): I82.431 - Acute embolism and thrombosis of right popliteal vein (2) Right lower quadrant abdominal pain Priority: Secondary Status: Acute (3) GI bleed Priority: Secondary Status: Resolved Qualifiers: GI bleed type/associated pathology: melena Qualified Code(s): K92.1 - Melena (4) Leukocytosis Priority: Secondary Status: Acute Qualifiers: Leukocytosis type: unspecified Qualified Code(s): D72.829 - Elevated white blood cell count, unspecified (5) CAD (coronary artery disease) Priority: Secondary Status: Chronic Qualifiers: Coronary Disease-Associated Artery/Lesion type: [place] artery [place] vs. transplanted heart: [place] heart Associated angina: angina presence unspecified Qualified Code(s): I25.10 - Atherosclerotic heart disease of [place] coronary artery without angina pectoris (6) LATHA (acute kidney injury) Priority: Secondary Status: Resolved (7) DVT prophylaxis Priority: Secondary Status: Acute Procedures/tests Complete & Pending: Procedures Performed prior 72 hours Category Date Time Status US abdomen complete [US] Routine Exams 10/10/16 20:30 Completed Date of admission: 10/05/16 21:29 Primary care physician: Delonte Guillaume MD Consults: 10/05/16 22:19 Consult to Surgery [CONS] Routine Consulting Provider: [facility] Reason for Consult: Suspected GI bleed in patient with acute DVT and need for anticoagulation. FOB +. Latter day and will not accept blood products. Call Completed: Yes - Patient Status Functional capacity at discharge: independent ambulation Overall status at discharge: patient is back to baseline - Diet and Activity Activity: increase activity as tolerated Diet: advance to your usual diet Hospital course: Ms. Concepcion is a 56 year old female with PMHx of HTN, HLD, CAD, GERD, hypothyroidism. she was admitted to [facility] on 10/05/16 for chief complaint of RLE pain. she had recently injured her foot a few weeks prior by slamming it into a car door. After that event, she had swelling and pain in her right leg. She also states that she was having bright red blood per rectum with clots present recently while she was taking naproxen. She was admitted for right lower extremity DVT and possible GI bleed. venous duplex imaging of right lower extremity showed DVT in right popliteal vein, and anterior tibial vein. Patient had EGD done to evaluate her subjective GI bleeding episode. EGD showed small hiatal hernia, but normal stomach and duodenum. Patient may benefit from outpatient colonoscopy as well. she states her last colonoscopy was about a year ago and was normal. patient was being bridged with coumadin and heparin for her DVT, but she refused coumadin because she believed that it was causing her to have severe headaches. Eliquis was then started after being approved by her insurance. During her hospital stay, patient complained of right lower quadrant abdominal pain. Abdominal ultrasound showed no significant findings other than hepatic steatosis. Patient had an elevated white count during her hospital stay that was likely due to her UTI. she was started on ceftriaxone, and then transitioned to oral levaquin based on urine culture sensitivities. During her hospital stay, patient was counseled on the risks of anticoagulation and GI bleed. This was explained to the patient thoroughly, as she is a Jehov[employer]' s witness and is unwilling to accept blood products if she does have an incident of bleed. patient was stable throughout the course of her hospital stay and remained stable until discharge. Discharge instructions: follow up with PCP within one week of discharge. Please take Eliquis as prescribed. Take two tabs twice a day for the first seven days, and one tab twice a day thereafter. Please start dose the evening of discharge. Take all medications as prescribed. Finish course of levaquin for UTI please return to emergency department if you develop signs of bleeding, chest pain, or shortness of breath. consider interval outpatient colonoscopy if having more bright red blood per rectum. - Time Spent with Patient Total time spent providing and/or coordinating discharge services: - Constitutional Vitals: Temp Pulse Resp BP Pulse Ox 97.8 F 81 15 109/69 96 10/11/16 03:22 10/11/16 03:22 10/11/16 03:22 10/11/16 03:22 10/11/16 03:22 General appearance: Present: A&O X 3, pleasant, no acute distress - Head Head exam: Present: atraumatic, normocephalic - Neck Neck exam general surgery: Present: supple, trachea midline - Respiratory Respiratory exam: Present: CTAB - Cardiovascular Cardiovascular exam: Present: RRR, +S1, +S2. Absent: rubs - GI/Abdominal GI/Abdominal exam: Present: soft Additional comments: RLQ tenderness to palpation. no peritoneal signs. no signs of guarding. - Extremities Exam Extremities exam: Absent: cyanotic, pedal edema - Neurological Exam Neurological exam: Present: alert, oriented X3, no focal deficits - Psychiatric Psychiatric exam: Present: normal affect, normal mood - Skin Skin exam: Present: intact <Ayush Sims T - Last Filed: 10/11/16 14:49> Date of Encounter: 10/11/16 - Discharge Diagnosis (1) Deep vein thrombosis of lower extremity Status: Acute Qualifiers: Affected thrombotic vein of extremity: popliteal Chronicity: acute Laterality: right Qualified Code(s): I82.431 - Acute embolism and thrombosis of right popliteal vein (2) GI bleed Status: Resolved Qualifiers: GI bleed type/associated pathology: melena Qualified Code(s): K92.1 - Melena (3) LATHA (acute kidney injury) Status: Resolved (4) CAD (coronary artery disease) Status: Chronic Qualifiers: Coronary Disease-Associated Artery/Lesion type: [place] artery [place] vs. transplanted heart: [place] heart Associated angina: angina presence unspecified Qualified Code(s): I25.10 - Atherosclerotic heart disease of [place] coronary artery without angina pectoris (5) Leukocytosis Status: Acute Qualifiers: Leukocytosis type: unspecified Qualified Code(s): D72.829 - Elevated white blood cell count, unspecified (6) UTI (urinary tract infection) Priority: Primary Status: Acute Qualifiers: Urinary tract infection type: acute cystitis Hematuria presence: without hematuria Qualified Code(s): N30.00 - Acute cystitis without hematuria (7) Hepatic steatosis Priority: Secondary Status: Chronic Procedures/tests Complete & Pending: Procedures Performed prior 72 hours Category Date Time Status US abdomen complete [US] Routine Exams 10/10/16 20:30 Completed Date of admission: 10/05/16 21:29 Primary care physician: Delonte Guillaume MD Consults: 10/05/16 22:19 Consult to Surgery [CONS] Routine Consulting Provider: [facility] Reason for Consult: Suspected GI bleed in patient with acute DVT and need for anticoagulation. FOB +. L[employer] day and will not accept blood products. Call Completed: Yes Discharging clinician: Ayush Sims Anticipated date of discharge: 10/11/16 Hospital course: Ms. Concepcion is a 56 year old female - Time Spent with Patient Total time spent providing and/or coordinating discharge services: - Constitutional Vitals: Temp Pulse Resp BP Pulse Ox 97.6 F 75 16 126/83 95 10/11/16 07:13 10/11/16 07:13 10/11/16 07:13 10/11/16 07:13 10/11/16 08:41 - Attending Attestation I examined this patient and my medical decision-making was reviewed with the Resident Physician on 10/11/16 I agree with the documented findings, disposition and treatment plan as described except to the extent set forth below. Patient was admitted for management of DVT She also had LATHA on admission, resolved with IVF. She reported a one time black stool/rectal bleed. EGD was negative for acute bleed, Colonoscopy one year ago was normal. Hb was stable. She had leukocytosis and UA revealed E.coli UTI. Her leukocytosis improved. Her USS also showed hepatic steatosis Patient refused Coumadin therapy but was anticoagulated with hepain. Her insurance company approved her Eliquis today She is stable for discharge home on same and Levaquin for UTI Rest of details as in resident physicians documentation
[2016-10-07] MEDS: *HR* Warfarin 5 MG TABLET PO SCH (16:50)
[2016-10-07] MEDS: Acetaminophen 325 MG TABLET PO PRN (16:50)
--- NOTE | 2016-10-07 16:59 | Event Note ---
Date of Encounter: 10/07/16 Time of Encounter: 10:20 I examined this patient and my medical decision-making was reviewed with the Resident Physician on 10/07/16. I agree with the documented findings, disposition and treatment plan as described except to the extent set forth below. 56 YO F with R popliteal provoked DVT, LATHA, suspected GI bleed She is clinically stable her H/H has been stable and her EGD is negative Her physical exam is unremarkable, R leg is no longer swollen She is a Jehovahs Witness and agrees to transition to oral anticoagulation today, she has been on heparin drip. She understands the increased risk of bleeding, despite not been able to take blood or blood products. Benefits of anticoagulation outweigh risks. We attempted a AYAN, pending approval, in the meantime, start bridging with Coumadin. Monitor INR Resume metoprolol for her blood pressure, continue to hold HCTZ There is currently no indication for a repeat colonoscopy, her H/H is stable. she may pursue one as out patient Change PPI from IV to po High risk patient due to heparin drip Rest of details as in resident physicians documentation
--- NOTE | 2016-10-07 17:42 | Internal Med Progress Note ---
Date of Encounter: 10/07/16 Time of Encounter: 08:10 - Assessment and plan (1) Deep vein thrombosis of lower extremity Current Visit: Yes Status: Acute Assessment and plan: Patient presented with right lower extremity pain and swelling. -Venous doppler revealed acute DVT in right popliteal and anterior tibial veins on presentation. -Initially had redness and swelling; redness and swelling have both subsided significantly. -Patient is currently on heparin drip. -Patient has agreed to start transition to oral anticoagulation. -Patient states that she understands the risk of bleeding; she is a Christianity, and is unable to accept blood products. -Patient was not approved for Xarelto. -Started bridging with Coumadin, 10/07/16. -Patient's INR will be monitored. Qualifiers: Affected thrombotic vein of extremity: popliteal Chronicity: acute Laterality: right Qualified Code(s): I82.431 - Acute embolism and thrombosis of right popliteal vein (2) DVT prophylaxis Current Visit: Yes Status: Acute Assessment and plan: Patient had acute DVT in the right lower extremity. -Patient is currently on heparin drip. -Patient was not approved for Xarelto. -Started bridging with Coumadin, 10/07/16. -Patient's INR will be monitored. (3) LATHA (acute kidney injury) Current Visit: Yes Status: Acute Assessment and plan: Patient's creatinine initially shamir to 1.25 from a previous of 0.92. -However, patient's creatinine this morning was 0.95. (4) CAD (coronary artery disease) Current Visit: Yes Status: Acute Assessment and plan: Patient had left heart catheterization in 2012. -Showed 40% stenosis in the mid LAD. -Do not require PCI -Patient takes metoprolol+hydrochlorothiazide, statin, and aspirin. -Patient states that she does not like her statin due to the fact that it causes muscle soreness. Qualifiers: Coronary Disease-Associated Artery/Lesion type: [place] artery [place] vs. transplanted heart: [place] heart Associated angina: angina presence unspecified Qualified Code(s): I25.10 - Atherosclerotic heart disease of [place] coronary artery without angina pectoris (5) GI bleed Current Visit: Yes Status: Resolved Assessment and plan: Patient reports that after starting naproxen, she had an episode of abdominal cramping followed by a large amount of bright red bloody bowel movement on September 23. -After she stopped taking, patient denied having any blood in her stool. Patient's hemoglobin today is 11.5. -EGD was negative. -PPI changed from IV to PO. -H/H has been stable. No indication at the time for a repeat colonoscopy. Patient had a colonoscopy one year ago. She may pursue on as an outpatient. Qualifiers: GI bleed type/associated pathology: melena Qualified Code(s): K92.1 - Melena - Subjective Interval history: Patient was seen and examined at bedside this morning. She states that she is feeling much better today. A weakness that the patient was having when she stood up yesterday morning since subsided. Her right leg swelling has noticeably decreased, and patient is no longer feeling pain in her leg. There is some mild tenderness to palpation in the right popliteal area. Patient currently denies any swelling, redness, tingling, fever, chills, dizziness, or weakness. Patient has no complaints at this time. - Constitutional Vitals: Temp Pulse Resp BP Pulse Ox 97.6 F 86 16 139/89 93 10/07/16 16:32 10/07/16 16:32 10/07/16 16:32 10/07/16 16:32 10/07/16 16:32 General appearance: Present: A&O X 3, pleasant, no acute distress - Respiratory Respiratory exam: Present: CTAB. Absent: accessory muscle use, rales, rhonchi, wheezes - Cardiovascular Cardiovascular exam: Present: RRR, +S1, +S2. Absent: diastolic murmur, gallop, rubs, systolic murmur - GI/Abdominal GI/Abdominal exam: Present: tenderness Additional comments: Patient states that she does have some mild tenderness to deep palpation in the right lower quadrant. She states that she has had this pain for several years. - Expanded Lower Extremities Exam Lower Leg exam: Present: swelling (Mild swelling is present in the right lower extremity near the knee. Swelling has subsided significantly since yesterday.) , tenderness (There is mild tenderness to palpation in the right popliteal area. ) - Psychiatric Psychiatric exam: Present: normal affect, normal mood Internal Medicine: Result - Labs CBC & Chem 7: 10/07/16 03:25 10/07/16 03:25 Labs: Short CBC 10/06/16 10/07/16 Range/Units 20:43 03:25 WBC 15.2 H (4.3-11.1) K/mcL Hgb 11.8 11.5 (11.5-15.4) g/dL Hct 35.9 35.2 L (35.3-44.9) % Plt Count 328 (140-400) K/mcL Neutrophils # 7.0 (1.6-8.9) K/mcL BMP 10/07/16 03:25 Sodium 141 Potassium 4.3 Chloride 108 Carbon Dioxide 26 BUN 14 Creatinine 0.95 Glucose 100 H Calcium 9.5 - ABG Interpretation ABG results: PT/INR, D-dimer PT 12.3 Seconds (9.4-12.1) H 10/07/16 03:25 Consult Discharge Plan - Plan Instructions: Rivaroxaban (By mouth) Referrals: Delonte Guillaume MD [Primary Care Provider] - 10/13/16 3:15 pm (web request 2016) Prescriptions: Rivaroxaban [Xarelto] 1 dose PO AD 30 Days
[2016-10-07] MEDS ORDERED: Warfarin perPT PO PRN (18:00)
[2016-10-07] MEDS: Heparin 25,000 UNIT/500 ML D5W 25,000 UNIT/500 ML MLS IVC SCH (18:54)
[2016-10-07] MEDS: *HR* OxyCODONE/APAP 5/325 TABLET PO PRN (20:44)
[2016-10-08] MEDS: *HR* OxyCODONE/APAP 5/325 TABLET PO PRN ×2 (00:56→02:45)
[2016-10-08 07:44] LABS: Basophils # 0.1 K/mcL (0.0-0.2); Basophils % 0.4 %; Eosinophils # 0.5 K/mcL (0.0-0.6); Eosinophils % 3.2 %; Hematocrit 35.6 % (35.3-44.9); Hemoglobin 11.9 g/dL (11.5-15.4); Immature Granulocytes % 0.3 % (0-4); Lymphocytes % 42.2 %; Mean Corpuscular HGB Conc 33.4 g/dL (31.6-35.5); Mean Corpuscular Hemoglobin 30.4 pg (28.0-33.3); Mean Corpuscular Volume 90.8 fL (83.0-100.0); Mean Platelet Volume 10.5 fL (9.4-12.4); Monocytes # 1.1 K/mcL (0.0-1.3); Monocytes % 7.8 %; Neutrophils # 6.5 K/mcL (1.6-8.9); Platelet Count 321 K/mcL (140-400); Red Blood Count 3.92 M/mcL (3.82-4.97); Red Cell Distribution Width 15.6 % (11.5-14.5); Segmented Neutrophils % 46.1 %
[2016-10-08 07:58] LABS: BUN/Creatinine Ratio 13 (6-26); Blood Urea Nitrogen 11 mg/dL (7-20); Calcium 9.5 mg/dL (8.6-10.8); Carbon Dioxide 25 mEq/L (19-29); Chloride 110 mEq/L (98-109); Glucose 95 mg/dL (70-99); Osmolality,Calculated 293 (280-300); Potassium 3.5 mEq/L (3.5-4.5); Sodium 142 mEq/L (136-145); eGFR For African Americans > 60 (> 60); eGFR For Non-African Americans > 60 (> 60)
[2016-10-08 08:04] LABS: INR 1.2; Prothrombin Time 12.7 Seconds (9.4-12.1)
[2016-10-08] MEDS: BuPROPion XL (24 HR) 150 MG TABLET PO SCH (09:22)
[2016-10-08] MEDS: *HR* Heparin 5,000 UNIT/ML VIAL IVP PRN (09:22)
--- NOTE | 2016-10-08 12:01 | Internal Med Progress Note ---
Date of Encounter: 10/08/16 Time of Encounter: 09:50 - Assessment and plan (1) Deep vein thrombosis of lower extremity Current Visit: Yes Status: Acute Assessment and plan: Patient presented with right lower extremity pain and swelling. -Venous doppler revealed acute DVT in right popliteal and anterior tibial veins on presentation. -Initially had redness and swelling; redness and swelling have resolved -Patient is currently on heparin drip and Coumadin, 10/07/16. -Patient's INR will be monitored -She understands the risks of bleeding with anticoagulation and agreed to anticoagulation despite her Spiritism status. Qualifiers: Affected thrombotic vein of extremity: popliteal Chronicity: acute Laterality: right Qualified Code(s): I82.431 - Acute embolism and thrombosis of right popliteal vein (2) GI bleed Current Visit: Yes Status: Resolved Assessment and plan: Patient reports that after starting naproxen, she had an episode of abdominal cramping followed by a large amount of bright red bloody bowel movement on September 23. This was unwitnessed Hb has been stable EGD was negative Her last colonoscopy is less than a year ago and normal Continue PPI Po Qualifiers: GI bleed type/associated pathology: melena Qualified Code(s): K92.1 - Melena (3) LATHA (acute kidney injury) Current Visit: Yes Status: Resolved Assessment and plan: Patient's creatinine initially shamir to 1.25 from a previous of 0.92. Renal function is stable (4) CAD (coronary artery disease) Current Visit: Yes Status: Chronic Assessment and plan: Patient had left heart catheterization in 2012. -Showed 40% stenosis in the mid LAD. -Do not require PCI -Patient takes metoprolol+hydrochlorothiazide, statin, and aspirin. -Patient states that she does not like her statin due to the fact that it causes muscle soreness. Qualifiers: Coronary Disease-Associated Artery/Lesion type: [place] artery [place] vs. transplanted heart: [place] heart Associated angina: angina presence unspecified Qualified Code(s): I25.10 - Atherosclerotic heart disease of [place] coronary artery without angina pectoris (5) Leukocytosis Current Visit: Yes Status: Acute Assessment and plan: Patient is afebrile, has no urinary or chest symptoms. Leukocytosis at this time of unknown etiology, with lymphocyte predominance Leukocytosis is improving Continue to monitor. Qualifiers: Leukocytosis type: unspecified Qualified Code(s): D72.829 - Elevated white blood cell count, unspecified - Subjective Interval history: Seen and evaluated at the bedside Patient has no new complaints She is on heparin drip, and Coumadin INR is subtherapeutic. - Constitutional Vitals: Temp Pulse Resp BP Pulse Ox 97.7 F 67 15 120/83 96 10/08/16 11:42 10/08/16 11:42 10/08/16 11:42 10/08/16 11:42 10/08/16 11:42 General appearance: Present: A&O X 3, pleasant, no acute distress, obese - Head Head exam: Present: atraumatic, normocephalic - Eye Eye exam: Present: PERRL, conjuntiva pink, sclera anicteric Pupils: Present: PERRL - Neck Neck exam general surgery: Present: supple, trachea midline. Absent: lymphadenopathy - Respiratory Respiratory exam: Present: CTAB. Absent: accessory muscle use, rales, rhonchi, wheezes - Cardiovascular Cardiovascular exam: Present: RRR, +S1, +S2. Absent: diastolic murmur, gallop, rubs, systolic murmur - GI/Abdominal GI/Abdominal exam: Present: normal bowel sounds, soft, no peritoneal signs. Absent: distended, tenderness - Extremities Exam Extremities exam: Present: warm, radial pulses palpable and symetrical. Absent : calf tenderness, cyanotic, pedal edema - Neurological Exam Neurological exam: Present: alert, CN II-XII intact, oriented X3, no focal deficits. Absent: pronater drift, facial droop, speech deficit - Skin Skin exam: Present: dry, intact Internal Medicine: Result - Labs CBC & Chem 7: 10/08/16 07:16 10/08/16 07:16 Labs: Short CBC 10/08/16 Range/Units 07:16 WBC 14.2 H (4.3-11.1) K/mcL Hgb 11.9 (11.5-15.4) g/dL Hct 35.6 (35.3-44.9) % Plt Count 321 (140-400) K/mcL Neutrophils # 6.5 (1.6-8.9) K/mcL BMP 10/08/16 07:16 Sodium 142 Potassium 3.5 Chloride 110 H Carbon Dioxide 25 BUN 11 Creatinine 0.88 Glucose 95 Calcium 9.5 - ABG Interpretation ABG results: PT/INR, D-dimer PT 12.7 Seconds (9.4-12.1) H 10/08/16 07:16 Consult Discharge Plan - Plan Instructions: Rivaroxaban (By mouth) Referrals: Delonte Guillaume MD [Primary Care Provider] - 10/13/16 3:15 pm (web request 2016) Prescriptions: Rivaroxaban [Xarelto] 1 dose PO AD 30 Days
[2016-10-08] MEDS: Heparin 25,000 UNIT/500 ML D5W 25,000 UNIT/500 ML MLS IVC SCH (14:55)
[2016-10-08] MEDS: *HR* Warfarin 5 MG TABLET PO SCH (17:31)
[2016-10-09] MEDS: Acetaminophen 325 MG TABLET PO PRN (05:37)
[2016-10-09] MEDS: Heparin 25,000 UNIT/500 ML D5W 25,000 UNIT/500 ML MLS IVC SCH ×2 (06:50→09:12)
[2016-10-09 07:11] LABS: INR 1.2; Prothrombin Time 12.7 Seconds (9.4-12.1)
[2016-10-09 07:19] LABS: Basophils # 0.1 K/mcL (0.0-0.2); Basophils % 0.4 %; Eosinophils # 0.5 K/mcL (0.0-0.6); Eosinophils % 2.9 %; Hematocrit 35.6 % (35.3-44.9); Hemoglobin 11.8 g/dL (11.5-15.4); Immature Granulocytes % 0.4 % (0-4); Lymphocytes # 6.7 K/mcL (0.6-4.6); Lymphocytes % 41.7 %; Mean Corpuscular HGB Conc 33.1 g/dL (31.6-35.5); Mean Corpuscular Hemoglobin 30.1 pg (28.0-33.3); Mean Corpuscular Volume 90.8 fL (83.0-100.0); Monocytes # 1.2 K/mcL (0.0-1.3); Monocytes % 7.1 %; Neutrophils # 7.7 K/mcL (1.6-8.9); Platelet Count 316 K/mcL (140-400); Red Blood Count 3.92 M/mcL (3.82-4.97); Red Cell Distribution Width 15.9 % (11.5-14.5); Segmented Neutrophils % 47.5 %
[2016-10-09] MEDS: BuPROPion XL (24 HR) 150 MG TABLET PO SCH (09:11)
--- NOTE | 2016-10-09 11:16 | Internal Med Progress Note ---
Date of Encounter: 10/09/16 Time of Encounter: 09:00 - Assessment and plan (1) Deep vein thrombosis of lower extremity Current Visit: Yes Status: Acute Assessment and plan: Patient presented with right lower extremity pain and swelling. Provoked acute DVT in right popliteal and anterior tibial veins on presentation. Patient is currently on heparin drip and Coumadin, 10/07/16. Patient's INR will be monitored May have to transition to Lovenox and Coumadin, with plan to dischare a.m, if INR remains sub-therapeutic She understands the risks of bleeding with anticoagulation and agreed to anticoagulation despite her Yazdanism status. Qualifiers: Affected thrombotic vein of extremity: popliteal Chronicity: acute Laterality: right Qualified Code(s): I82.431 - Acute embolism and thrombosis of right popliteal vein (2) GI bleed Current Visit: Yes Status: Resolved Assessment and plan: Patient reports that after starting naproxen, she had an episode of abdominal cramping followed by a large amount of bright red bloody bowel movement on September 23. This was unwitnessed Hb has been stable EGD was negative Her last colonoscopy is less than a year ago and normal Continue PPI Po Qualifiers: GI bleed type/associated pathology: melena Qualified Code(s): K92.1 - Melena (3) LATHA (acute kidney injury) Current Visit: Yes Status: Resolved Assessment and plan: Resolved (4) CAD (coronary artery disease) Current Visit: Yes Status: Chronic Assessment and plan: Patient had left heart catheterization in 2012. Showed 40% stenosis in the mid LAD. Do not require PCI Patient takes metoprolol+hydrochlorothiazide, statin, and aspirin. Patient states that she does not like her statin due to the fact that it causes muscle soreness. Qualifiers: Coronary Disease-Associated Artery/Lesion type: [place] artery [place] vs. transplanted heart: [place] heart Associated angina: angina presence unspecified Qualified Code(s): I25.10 - Atherosclerotic heart disease of [place] coronary artery without angina pectoris (5) Leukocytosis Current Visit: Yes Status: Acute Assessment and plan: Patient is afebrile, has no urinary or chest symptoms. Leukocytosis at this time of unknown etiology, with lymphocyte predominance Obtain UA Continue to monitor. Qualifiers: Leukocytosis type: unspecified Qualified Code(s): D72.829 - Elevated white blood cell count, unspecified - Subjective Interval history: Seen and evaluated at the bedside Patient has no new complaints She is on heparin drip, and Coumadin Leukocytosis is persistent INR is subtherapeutic. - Constitutional Vitals: Temp Pulse Resp BP Pulse Ox 98.1 F 80 14 124/80 94 10/09/16 07:09 10/09/16 07:09 10/09/16 07:09 10/09/16 07:09 10/09/16 09:25 General appearance: Present: A&O X 3, pleasant, no acute distress, obese - Head Head exam: Present: atraumatic, normocephalic - Eye Eye exam: Present: PERRL, conjuntiva pink, sclera anicteric Pupils: Present: PERRL - Neck Neck exam general surgery: Present: supple, trachea midline. Absent: lymphadenopathy - Respiratory Respiratory exam: Present: CTAB. Absent: accessory muscle use, rales, rhonchi, wheezes - Cardiovascular Cardiovascular exam: Present: RRR, +S1, +S2. Absent: diastolic murmur, gallop, rubs, systolic murmur - GI/Abdominal GI/Abdominal exam: Present: normal bowel sounds, soft, no peritoneal signs. Absent: distended, tenderness - Extremities Exam Extremities exam: Present: warm, radial pulses palpable and symetrical. Absent : calf tenderness, cyanotic, pedal edema - Neurological Exam Neurological exam: Present: alert, CN II-XII intact, oriented X3, no focal deficits. Absent: pronater drift, facial droop, speech deficit - Skin Skin exam: Present: dry, intact Internal Medicine: Result - Labs CBC & Chem 7: 10/09/16 06:09 10/08/16 07:16 Labs: Short CBC 10/09/16 Range/Units 06:09 WBC 16.1 H (4.3-11.1) K/mcL Hgb 11.8 (11.5-15.4) g/dL Hct 35.6 (35.3-44.9) % Plt Count 316 (140-400) K/mcL Neutrophils # 7.7 (1.6-8.9) K/mcL - ABG Interpretation ABG results: PT/INR, D-dimer PT 12.7 Seconds (9.4-12.1) H 10/09/16 06:09 Consult Discharge Plan - Plan Instructions: Rivaroxaban (By mouth) Referrals: Delonte Guillaume MD [Primary Care Provider] - 10/13/16 3:15 pm (web request 2016) Prescriptions: Rivaroxaban [Xarelto] 1 dose PO AD 30 Days
[2016-10-09 15:40] LABS: Bilirubin,Urine Negative (Negative); Blood,Urine Trace (Negative); Color,Urine Yellow (Yellow); Glucose,Urine (UA) Normal (Normal); Ketones,Urine Negative (Negative); Leukocyte Esterase,Urine Negative (Negative); Nitrite,Urine Positive (Negative); PH,Urine 6.5 pH Units (5.0-8.0); Protein,Urine Negative (Neg-Trace); Urobilinogen,Urine Normal (Normal)
[2016-10-09 15:41] LABS: Bacteria,Urine Many per hpf (None-Few); Hyaline Casts,Urine None Seen per lpf (None-Few); Squamous Epithelial Cell,Urine Many per lpf (None-Few); WBC,Urine 0-3 per hpf (0-3)
[2016-10-09 15:47] LABS: Clarity,Urine Hazy (Clear)
[2016-10-09] MEDS: *HR* Warfarin 5 MG TABLET PO SCH (17:46)
[2016-10-09] MEDS ORDERED: Melatonin 3 MG TABLET PO PRN (19:42)
[2016-10-10] MEDS: Metoprolol XL (24 HR) Succ 25 MG TAB.ER.24H PO SCH ×3 (01:18→21:37)
[2016-10-10] MEDS: hydroCHLOROthiazide 25 MG TABLET PO SCH ×3 (01:18→21:36)
[2016-10-10] MEDS: Acetaminophen 325 MG TABLET PO PRN (03:20)
[2016-10-10] MEDS: Heparin 25,000 UNIT/500 ML D5W 25,000 UNIT/500 ML MLS IVC SCH (03:21)
[2016-10-10 05:19] LABS: INR 1.3; Prothrombin Time 14.3 Seconds (9.4-12.1)
[2016-10-10] MEDS: Loratadine 10 MG TABLET PO SCH (09:05)
[2016-10-10] MEDS: Aspirin Enteric Coated 81 MG Tablet PO SCH (09:05)
[2016-10-10] MEDS: BuPROPion XL (24 HR) 150 MG TABLET PO SCH (09:05)
[2016-10-10] MEDS: *HR* Enoxaparin 120 MG/0.8 ML SYRINGE SQ SCH ×2 (10:17→17:51)
--- NOTE | 2016-10-10 17:36 | Internal Med Progress Note ---
<Sea Kirk - Last Filed: 10/10/16 17:33> Date of Encounter: 10/10/16 Time of Encounter: 10:30 - Assessment and plan (1) Deep vein thrombosis of lower extremity Current Visit: Yes Status: Acute Assessment and plan: venous duplex imaging of RLE showed right popliteal vein, anterior tibial vein, and gastrocnemius vein with acute thrombus. patient was previously being bridged with heparin and coumadin. However, patient refuses coumadin because she believes it is causing her headaches. patient educated on importance of tx for DVT. patient understands risks of bleeding with anticoagulation. she is Jahovah's witness and will not take blood products. patient's insurance will not pay for xarelto Plan: heparin and coumadin discontinued because she refuses will re check with insurance about other novel anticoagulants. Lovenox for now. Qualifiers: Affected thrombotic vein of extremity: popliteal Chronicity: acute Laterality: right Qualified Code(s): I82.431 - Acute embolism and thrombosis of right popliteal vein (2) Right lower quadrant abdominal pain Current Visit: Yes Status: Acute Assessment and plan: patient complaining of severe right lower quadrant abdominal pain no peritoneal signs. Plan: complete lower abdominal ultrasound ordered. if obvious signs of fluid collection noted, will order CT. (3) GI bleed Current Visit: Yes Status: Resolved Assessment and plan: patient reports that she since starting naproxen, she had bright red blood per rectum with clots present. this was unwitnessed. EGD showed small hiatal hernia, normal stomach, normal duodenom. her last colonoscopy was about 1 year ago and was normal. Plan: continue to monitor H&H continue PPI consider interval colonoscopy outpatient if needed. Qualifiers: GI bleed type/associated pathology: melena Qualified Code(s): K92.1 - Melena (4) Leukocytosis Current Visit: Yes Status: Acute Assessment and plan: etiology likely secondary to UTI prelim culture grew gram negative rods. Plan: ceftriaxone day 1 await urine final culture and sensitivities. will re check CBC tomorrow. Qualifiers: Leukocytosis type: unspecified Qualified Code(s): D72.829 - Elevated white blood cell count, unspecified (5) CAD (coronary artery disease) Current Visit: Yes Status: Chronic Assessment and plan: hx of [facility] in 2012 showed 40% stenosis of LAD, did not require PCI. patient refuses her statin due to muscle soreness. Plan: continue metoprolol, hydrochlorothiazide, statin, ASA Qualifiers: Coronary Disease-Associated Artery/Lesion type: [place] artery [place] vs. transplanted heart: [place] heart Associated angina: angina presence unspecified Qualified Code(s): I25.10 - Atherosclerotic heart disease of [place] coronary artery without angina pectoris (6) LATHA (acute kidney injury) Current Visit: Yes Status: Resolved Assessment and plan: resolved (7) DVT prophylaxis Current Visit: Yes Status: Acute Assessment and plan: Lovenox - Subjective Interval history: 56 year old female evaluated at bedside. she is complaining of a headache, which she believes is from the coumadin. she is also complaining of right lower quadrant abdominal pain. patient is refusing to take her warfarin because she believes it is causing her headaches. she was educated on the importance of being on a blood thinner by both me and the attending physician. she denes any further complaints today. - Constitutional Vitals: Temp Pulse Resp BP Pulse Ox 98.4 F 87 18 127/86 94 10/10/16 15:52 10/10/16 15:52 10/10/16 15:52 10/10/16 15:52 10/10/16 15:52 General appearance: Present: A&O X 3, pleasant, no acute distress, obese, answers questions appropriately - Head Head exam: Present: atraumatic, normocephalic - Neck Neck exam general surgery: Present: supple, trachea midline - Respiratory Respiratory exam: Present: CTAB - Cardiovascular Cardiovascular exam: Present: RRR, +S1, +S2 - GI/Abdominal GI/Abdominal exam: Present: normal bowel sounds, soft, tenderness Additional comments: severe right lower quadrant tenderness to palpation. no peritoneal signs upon exam. - Extremities Exam Extremities exam: Absent: cyanotic, pedal edema - Neurological Exam Neurological exam: Present: alert, oriented X3, no focal deficits - Psychiatric Psychiatric exam: Present: normal affect, normal mood - Skin Skin exam: Present: intact Internal Medicine: Result - Labs CBC & Chem 7: 10/09/16 06:09 10/08/16 07:16 - ABG Interpretation ABG results: PT/INR, D-dimer PT 14.3 Seconds (9.4-12.1) H 10/10/16 05:06 Consult Discharge Plan - Plan Instructions: Rivaroxaban (By mouth) Referrals: Delonte Guillaume MD [Primary Care Provider] - 10/13/16 3:15 pm (web request 2016) Prescriptions: Rivaroxaban [Xarelto] 1 dose PO AD 30 Days <Ayush Sims - Last Filed: 10/10/16 18:11> Date of Encounter: 10/10/16 - Assessment and plan (1) Deep vein thrombosis of lower extremity Current Visit: Yes Status: Acute Qualifiers: Affected thrombotic vein of extremity: popliteal Chronicity: acute Laterality: right Qualified Code(s): I82.431 - Acute embolism and thrombosis of right popliteal vein (2) GI bleed Current Visit: Yes Status: Resolved Qualifiers: GI bleed type/associated pathology: melena Qualified Code(s): K92.1 - Melena (3) LATHA (acute kidney injury) Current Visit: Yes Status: Resolved (4) CAD (coronary artery disease) Current Visit: Yes Status: Chronic Qualifiers: Coronary Disease-Associated Artery/Lesion type: [place] artery [place] vs. transplanted heart: [place] heart Associated angina: angina presence unspecified Qualified Code(s): I25.10 - Atherosclerotic heart disease of [place] coronary artery without angina pectoris (5) Leukocytosis Current Visit: Yes Status: Acute Qualifiers: Leukocytosis type: unspecified Qualified Code(s): D72.829 - Elevated white blood cell count, unspecified - Constitutional Vitals: Temp Pulse Resp BP Pulse Ox 98.4 F 87 18 127/86 94 10/10/16 15:52 10/10/16 15:52 10/10/16 15:52 10/10/16 15:52 10/10/16 15:52 Internal Medicine: Result - Labs CBC & Chem 7: 10/09/16 06:09 10/08/16 07:16 - ABG Interpretation ABG results: PT/INR, D-dimer PT 14.3 Seconds (9.4-12.1) H 10/10/16 05:06 - Attending Attestation I examined this patient and my medical decision-making was reviewed with the Resident Physician on 10/10/16. I agree with the documented findings, disposition and treatment plan as described except to the extent set forth below. Patient being managed for DVT with heparin and Coumadin This morning on evaluation, she reports she has severe headaches as a result of taking Coumadin and does not want it anymore. Her insurance company declined NOAs. She has decided to go home without anticoagulation. In the meantime, we will continue with Lovenox while she is inpatient She also has UA suggestive of UTI and she is being treated with ceftriaxone. Her physical exam is unremarkable Labs and Imaging reviewed: Persistent leukocytosis Agree with complete abdominal USS for RLQ pain, continue antibiotics. Follow cultures, repeat CBC. Patient also refused any statin for hyperlipidemia. BP is controlled Rest of details as in resident physicians documentation
[2016-10-10] MEDS ORDERED: *HR* Warfarin 3 MG TABLET PO SCH (18:00)
[2016-10-11] MEDS: Acetaminophen 325 MG TABLET PO PRN (03:51)
[2016-10-11] MEDS: *HR* Enoxaparin 120 MG/0.8 ML SYRINGE SQ SCH (06:54)
[2016-10-11 07:16] VITALS: BP 126/83
[2016-10-11] MEDS ORDERED: Ondansetron 4 MG/2 ML VIAL IVP PRN (08:01)
[2016-10-11 08:13] LABS: Basophils # 0.1 K/mcL (0.0-0.2); Basophils % 0.3 %; Eosinophils # 0.4 K/mcL (0.0-0.6); Eosinophils % 2.4 %; Immature Granulocytes % 0.3 % (0-4); Lymphocytes # 5.4 K/mcL (0.6-4.6); Lymphocytes % 37.3 %; Mean Corpuscular HGB Conc 32.5 g/dL (31.6-35.5); Mean Corpuscular Volume 89.1 fL (83.0-100.0); Mean Platelet Volume 10.3 fL (9.4-12.4); Monocytes # 1.1 K/mcL (0.0-1.3); Monocytes % 7.4 %; Neutrophils # 7.5 K/mcL (1.6-8.9); Platelet Count 355 K/mcL (140-400); Red Blood Count 4.49 M/mcL (3.82-4.97); Red Cell Distribution Width 15.9 % (11.5-14.5); Segmented Neutrophils % 52.3 %
[2016-10-11 08:22] LABS: INR 1.5
[2016-10-11 08:27] LABS: BUN/Creatinine Ratio 14 (6-26); Blood Urea Nitrogen 13 mg/dL (7-20); Calcium 9.8 mg/dL (8.6-10.8); Carbon Dioxide 24 mEq/L (19-29); Chloride 107 mEq/L (98-109); Glucose 92 mg/dL (70-99); Osmolality,Calculated 292 (280-300); Potassium 3.6 mEq/L (3.5-4.5); Sodium 141 mEq/L (136-145); eGFR For African Americans > 60 (> 60); eGFR For Non-African Americans > 60 (> 60)
[2016-10-11] MEDS: Metoprolol XL (24 HR) Succ 25 MG TAB.ER.24H PO SCH (08:28)
[2016-10-11] MEDS: Aspirin Enteric Coated 81 MG Tablet PO SCH (08:28)
[2016-10-11] MEDS: BuPROPion XL (24 HR) 150 MG TABLET PO SCH (08:28)
[2016-10-11] MEDS: Loratadine 10 MG TABLET PO SCH (08:29)
[2016-10-11] MEDS: hydroCHLOROthiazide 25 MG TABLET PO SCH (08:29)
[2016-10-11] MEDS ORDERED: Cholecalciferol (D-3) 1,000 UNIT TABLET PO SCH (09:00)
[2016-10-11] MEDS ORDERED: APIXABAN 5 MG TABLET PO SCH ×2 (09:30→21:00)
[2016-10-18] MEDS ORDERED: APIXABAN 5 MG TABLET PO SCH ×2 (09:00→21:00)
== END 2016-10-11 13:50 | disposition home or self-care (01) ==
LOC: 3ANU 17:43 → EMEROO 17:43 → SUATTDRO 21:29 → 3ANU 23:11 → 2ANU 23:43
PROVIDERS: ADMIT Internal Medicine; ATTEND Internal Medicine

== ENCOUNTER 2016-10-15 11:40 | Observation (INO) ==
--- NOTE | 2016-10-15 13:46 | Emergency Department Note ---
Disposition Clinical Impression: Chest discomfort, ECG abnormality Disposition: Admitted As Inpatient Condition: Fair Time of Disposition: 15:10 General Adult HPI - General Chief complaint: ED Abdominal Pain Stated complaint: Abd swelling sent by pcp Time Seen by Provider: 10/15/16 11:51 Source: patient Limitations: no limitations - History of Present Illness HPI Narrative: 56-year-old female with past medical history of coronary artery disease, GERD asthma and most recently LE DVTs requiring hospitalization. Patient presents with an abdominal wall hematoma. She was recently started on anticoagulation medication Eliquis. She presents today at request of her primary care physician Dr. Loving. She states that her area of bruising on her abdominal wall has become larger since being discharged from the hospital on October 11. The bruising is at the location of where her Lovenox injections were given. She is having some abdominal pain in the area and also in the right lower quadrant. She describes the pain as tender and it does not radiate anywhere. She says she is recovering from a UTI. She is no longer having any bladder pain but she is still feeling heaviness in the region. Patient says she takes a water pill and metoprolol for some coronary artery occlusion that was diagnosed in 2012. She denies any chest pain above her baseline. She is not short of breath. Denies diaphoresis or nausea. Patient is a [employer]. Onset (ago): day(s) Location: abdomen Radiation: non-radiation Pain Severity: moderate Pain Scale: 0 Quality: dull Consistency: constant Improves with: nothing Worsens with: nothing Associated symptoms: Reports: denies other symptoms, chest pain (She says she has interrmittent chest pain but nothing more than her baseline.) - Related Data Home Medications Medication Instructions Recorded Confirmed Aspirin [Lo-Dose Aspirin EC] 81 mg PO DAILY 10/05/16 10/15/16 BuPROPion XL (24 HR) [Wellbutrin 150 mg PO DAILY 10/05/16 10/15/16 Xl] Calcium Carbonate/Vitamin D3 1 tab PO DAILY 10/05/16 10/15/16 [Calcium 500 + Vit D Caplet] Cetirizine HCl [All Day Allergy] 10 mg PO DAILY 10/05/16 10/15/16 Famotidine [Pepcid] 40 mg PO HS 10/05/16 10/15/16 Levothyroxine Sodium 75 mcg PO QAM 10/05/16 10/15/16 Metoprolol Succinate/Hctz 0.5 tab PO BID 10/05/16 10/15/16 [Dutoprol 25-12.5 mg Tablet] Pantoprazole Sodium [Protonix] 40 mg PO DAILY 10/05/16 10/15/16 Pravastatin Sodium [Pravachol] 20 mg PO HS 10/05/16 10/15/16 Previous Rx's Medication Instructions Recorded Apixaban [Eliquis] 5 mg PO BID #70 tablet 10/11/16 Levofloxacin [Levaquin] 750 mg PO DAILY #3 tablet 10/11/16 Allergies Allergy/AdvReac Type Severity Reaction Status Date / Time codeine Allergy Difficulty Verified 10/15/16 11:47 Breathing propoxyphene Allergy Difficulty Verified 10/15/16 11:47 Breathing Sulfa (Sulfonamide Allergy Difficulty Verified 10/15/16 11:47 Antibiotics) Breathing tramadol Allergy Difficulty Verified 10/15/16 11:47 Breathing adhesive AdvReac Rash Verified 10/15/16 17:40 atorvastatin AdvReac Cramping Verified 10/15/16 17:40 of the Muscles bacitracin AdvReac Redness of Verified 10/15/16 17:40 [From Neosporin Skin ([id number])] Latex, Natural Rubber AdvReac Rash Verified 10/15/16 17:40 naproxen AdvReac See Verified 10/15/16 11:47 Comments Neomycin AdvReac Redness of Verified 10/15/16 17:40 [From Neosporin Skin ([id number])] polymyxin B AdvReac Redness of Verified 10/15/16 17:40 [From Neosporin Skin ([id number])] Warfarin [From Coumadin] AdvReac Headache Verified 10/15/16 17:40 All systems ED: reviewed and negative except as stated. Constitutional: Denies: fever, chills, weakness ENT ED: Denies: throat pain Cardiovascular: Reports: chest pain. Denies: palpitations, dyspnea on exertion Respiratory: Denies: cough, dyspnea, wheezes, hemoptysis, stridor Gastrointestinal: Reports: abdominal pain. Denies: vomiting, diarrhea, hematemesis, melena, hematochezia Genitourinary: Denies: urgency (Patient does feel heaviness in bladder.), dysuria, frequency, hematuria Neurological: Denies: headache, weakness Psychiatric: Denies: anxiety, depression Endocrine: Denies: fatigue, heat or cold intolerance Hematological/Lymphatic: Reports: easy bleeding, easy bruising Past Medical History - Past Medical History Attestation: Yes The following information was validated with the patient. Medical history: Reports: asthma, coronary artery disease, GERD, thyroid disease Surgical history: Reports: splenectomy, vascular surgery Psychiatric history: Reports: anxiety, depression - Social History Smoking Status: Former smoker Smokeless Tobacco Status: No Alcohol use: Reports: none Drug use: Reports: none Physical Exam - General Limitations: no limitations General appearance: alert, in no apparent distress - Head Head exam: atraumatic, normocephalic - Eye Eye exam: Present: normal appearance, PERRL - ENT ENT exam: normal exam, normal oropharynx, mucous membranes moist - Chest Chest inspection: Present: normal inspection - Respiratory Respiratory exam: Present: normal lung sounds bilaterally. Absent: respiratory distress, wheezes, stridor - Cardiovascular Cardiovascular exam: Present: regular rate, normal rhythm. Absent: systolic murmur, diastolic murmur, rubs, gallop - Abdominal Exam Abdominal exam: Present: soft. Absent: distention, guarding, rebound, tenderness at McBurney's Point, ascites, pulsatile mass Abdominal tenderness: Present: RLQ, LLQ (Patient with 7cm by 3cm hematoma with ecchymosis on left anterior abdomen.), mild - Expanded Lower Extremity Exam Upper leg exam: Present: full ROM, ecchymosis. Absent: swelling, abrasion, erythema Neurovascular/Tendon exam: Absent: pulse deficit, motor deficit - Neurological Exam Neurological exam: Present: alert, oriented X3 Course Course Narrative: 56-year-old female with past medical history of coronary artery disease thyroid disease and most recently DVTs with a hospitalization last week presents with a four-day history of AVN left anterior abdominal hematoma. Patient is refusing labs other than a troponin because she has bruising left over from her hospitalization last week. Patient is currently being coagulated on liquids. Patient initially refusing ECG because of allergy to adhesive. Patient agrees to ECG. Patient to receive abdominal CT scan with IV contrast. - Reevaluation(s) Reevaluation #1: Patient's ECG showing changes. Patient's heart score of 4. Will discuss with patient likely admit to medicine. Reevaluation #2: No acute intra-abdominal bleeding. Patient's ECG were was discussed with patient. Will admit to medicine. Michael parada PUBLIC RELATIONS COUNSELOR on medicine accepted. Vital Signs Temperature 97.7 F 10/15/16 11:44 Pulse Rate 79 10/15/16 11:44 Respiratory Rate 16 10/15/16 11:44 Blood Pressure 132/87 10/15/16 11:44 O2 Sat by Pulse Oximetry 96 10/15/16 11:44 Temperature 98.2 F 10/15/16 17:10 Pulse Rate 81 10/15/16 17:10 Respiratory Rate 16 10/15/16 17:10 Blood Pressure 107/75 10/15/16 17:10 O2 Sat by Pulse Oximetry 95 10/15/16 17:10 Oxygen Delivery Oxygen Delivery Room Air Medical Decision Making - Medical Records Medical records reviewed: Yes I reviewed the patient's medical records. - Lab Data Lab results reviewed: Yes I reviewed the patient's lab results. Lab Results 10/15/16 10/15/16 Range/Units 12:56 14:12 Troponin I 0.00 (0-0.03) ng/mL Urine Color Yellow (Yellow) Urine Clarity Clear (Clear) Urine pH 6.0 (5.0-8.0) pH Units Ur Specific [place] > 1.030 H (1.010-1.025) Urine Protein Negative (Neg-Trace) mg/dL Urine Glucose (UA) Normal (Normal) mg/dL Urine Ketones Negative (Negative) mg/dL Urine Blood Trace H (Negative) Urine Nitrite Negative (Negative) Urine Bilirubin Negative (Negative) Urine Urobilinogen Normal (Normal) mg/dL Ur Leukocyte Esterase Small H (Negative) Urine Microscopic RBC 0-3 (0-3) per hpf Urine Microscopic WBC 5-15 H (0-3) per hpf Ur Squamous Epith Cells Many H (None-Few) per lpf Urine Bacteria None Seen (None-Few) per hpf Hyaline Casts None Seen (None-Few) per lpf Ur Culture Indicated? YES A (NO) - Radiology Data Radiology results reviewed: Yes I reviewed the patient's radiology results. Abdomen/Pelvis CT 10/15/16 12:19 IMPRESSION: Localized skin thickening with subjacent subcutaneous nodules anterior aspect left sided abdominal wall likely reflecting injection granulomata from probable Lovenox treatment in a patient with a history of recent DVT. Superimposed inflammatory/infectious process cannot be excluded. No acute intra-abdominal or pelvic process seen. D/ / 10/15/2016 13:53:06 Calvin Monroe MD / george Interpreting Provider: Calvin Monroe MD - EKG Data EKG #1 EKG attestation: Yes I reviewed and interpreted this EKG. EKG results narrative: ECG on 10/15/2016 show sinus rhythm and ST deviation and moderate T-wave abnormalities. ECG is changed from one taken on 10/16/2007 which showed sinus bradycardia with first-degree AV block. Attestation Statement - Attestation Attestation: I examined this patient and my medical decision-making was reviewed with the Resident Physician. I agree with the documented findings, disposition and treatment plan as described except to the extent set forth below. 56-year-old female with abdominal wall hematoma after anticoagulation use. CT scan shows no evidence of extra visitation or active bleeding. Pain control is adequate at this time. EKG shows nonspecific T-wave inversions in anterior leads. This represents a change from previous EKG. Plan to admit for further evaluation of abnormal EKG in the setting of chest pain and abdominal wall hematoma.
[2016-10-15 14:24] LABS: Bilirubin,Urine Negative (Negative); Blood,Urine Trace (Negative); Clarity,Urine Clear (Clear); Color,Urine Yellow (Yellow); Glucose,Urine (UA) Normal (Normal); Ketones,Urine Negative (Negative); Leukocyte Esterase,Urine Small (Negative); Nitrite,Urine Negative (Negative); Protein,Urine Negative (Neg-Trace); Specific Gravity,Urine > 1.030 (1.010-1.025); Urobilinogen,Urine Normal (Normal)
[2016-10-15 14:27] LABS: Bacteria,Urine None Seen per hpf (None-Few); Hyaline Casts,Urine None Seen per lpf (None-Few); RBC,Urine 0-3 per hpf (0-3); Squamous Epithelial Cell,Urine Many per lpf (None-Few)
[2016-10-15] MEDS ORDERED: Acetaminophen 325 MG TABLET PO PRN (19:59)
--- NOTE | 2016-10-15 20:29 | Internal Med History&Physical ---
<Rula Carlton - Last Filed: 10/15/16 20:03> Date of Encounter: 10/15/16 Time of Encounter: 19:00 Assessment and Plan (1) Chest pain Current visit: Yes Status: Chronic - Patient reports chronic substernal chest pressure, which is reproducible on palpation. - Likely masculoskeletal. Less likely cardiac given negative troponin and negative nuclear stress test on 08/11/16. - The T wave inversion on current EKG actually can been seen on EKG form 2012 ( per eCW). - Continue to trend troponin. Possible discharge tomorrow morning if remaining negative. - Telemetry monitoring. Time spent with patient: 40 minutes. Qualifiers: Chest pain type: unspecified Qualified Code(s): R07.9 - Chest pain, unspecified (2) Hypothyroidism Current visit: Yes Status: Chronic - TSH 15.8 on 10/14/16. - Will increase Synthroid to 100 mcg daily. - Patient will need to follow up with her PCP for further adjustment. Qualifiers: Hypothyroidism type: acquired Qualified Code(s): E03.9 - Hypothyroidism, unspecified (3) History of DVT of lower extremity Current visit: Yes Status: Chronic - Continue Eliquis. (4) CAD (coronary artery disease) Current visit: No Status: Chronic - Continue asa, BB and statin. Qualifiers: Coronary Disease-Associated Artery/Lesion type: [place] artery [place] vs. transplanted heart: [place] heart Associated angina: angina presence unspecified Qualified Code(s): I25.10 - Atherosclerotic heart disease of [place] coronary artery without angina pectoris (5) GERD (gastroesophageal reflux disease) Current visit: Yes Status: Chronic - Continue PPI. Qualifiers: Esophagitis presence: esophagitis presence not specified Qualified Code(s) : K21.9 - Gastro-esophageal reflux disease without esophagitis Internal Medicine - H&P: HPI Chief complaint: LLQ abdominal bruise and tender bump Admitted From: Emergency Dept Plans for Post Hospital Care: Home History of present illness: Ms. Concepcion is a 56 year old Jehovah Witness female with PMH of hypothyroidism, GERD, CAD s/p [facility] 2012 but no stent, HLD and recently hospitalization (10/05 -10/11 ) for RLE DVT and discharged home with Eliquis. Patient presented with complaint of left lower quadrant bruise and tender bump at where she got Lovenox shot in the hospital. Patient reports the bruise size increased since discharge. Patient called her PCP Dr. Guillaume for the concern and was told to come to ED. Patient complains of constant substernal pressure-like pain without radiation since 2012 and it's reproducible on palpation. Patient also has occasional palpitation when she shifts from exercise to rest. Patient's right leg pain and swelling resolved since discharge and patient reports taking her Eliquis on time. Patient was also treated for bautista-sensitive E. coli UTI during prior hospitalization and patient reports urinary symptoms mostly resolved except some remaining urinary bladder heaviness. Patient denies fever, chills, nausea, vomiting, shortness of breath, cough. Patient is full code. CT A/P was ordered in ED for the concern of left anterior abdominal hematoma but showed Localized skin thickening with subjacent subcutaneous nodules anterior aspect left sided abdominal wall likely reflecting injection granulomata from probable Lovenox treatment in a patient with a history of recent DVT. EKG in ED showed T wave inversion of V1, V2 & V3 compared to old EKG form 2007. Past Med Surg Social Fam HX - Past Medical History Medical history: coronary artery disease, DVT, GERD, thyroid disease Psychiatric history: anxiety, depression - Past Surgical History Surgical History: splenectomy, vascular surgery - Social History Smoking Status: Former smoker Smokeless Tobacco Status: No Alcohol use: none Drug use: none - Family History Mother Living Status: Still Living Hx Family Cardiac Disorders: Yes (pacer) Hx Family Cancer: Yes (colon, breast) Father Living Status: Hx Family Cardiac Disorders: Yes Brother Living Status: Still Living Hx Family Cardiac Disorders: Yes (DVTs) Internal Medicine - H&P: Meds Aspirin [Lo-Dose Aspirin EC] 81 mg PO DAILY 10/05/16 [History] BuPROPion XL (24 HR) [Wellbutrin Xl] 150 mg PO DAILY 10/05/16 [History] Calcium Carbonate/Vitamin D3 [Calcium 500 + Vit D Caplet] 1 tab PO DAILY [History] Cetirizine HCl [All Day Allergy] 10 mg PO DAILY 10/05/16 [History] Famotidine [Pepcid] 40 mg PO HS 10/05/16 [History] Levothyroxine Sodium 75 mcg PO QAM 10/05/16 [History] Metoprolol Succinate/Hctz [Dutoprol 25-12.5 mg Tablet] 0.5 tab PO BID 10/05/16 [ History] Pantoprazole Sodium [Protonix] 40 mg PO DAILY 10/05/16 [History] Pravastatin Sodium [Pravachol] 20 mg PO HS 10/05/16 [History] Apixaban [Eliquis] 5 mg PO BID #70 tablet 10/11/16 [Rx] Levofloxacin [Levaquin] 750 mg PO DAILY #3 tablet 10/11/16 [Rx] Allergies codeine Allergy (Verified 10/15/16 11:47) Difficulty Breathing propoxyphene Allergy (Verified 10/15/16 11:47) Difficulty Breathing Sulfa (Sulfonamide Antibiotics) Allergy (Verified 10/15/16 11:47) Difficulty Breathing tramadol Allergy (Verified 10/15/16 11:47) Difficulty Breathing adhesive Adverse Reaction (Verified 10/15/16 17:40) Rash atorvastatin Adverse Reaction (Verified 10/15/16 17:40) Cramping of the Muscles bacitracin [From Neosporin ([id number])] Adverse Reaction (Verified 10/15/16 17:40) Redness of Skin Latex, Natural Rubber Adverse Reaction (Verified 10/15/16 17:40) Rash naproxen Adverse Reaction (Verified 10/15/16 11:47) See Comments blood in stool Neomycin [From Neosporin ([id number])] Adverse Reaction (Verified 10/15/16 17 :40) Redness of Skin polymyxin B [From Neosporin ([id number])] Adverse Reaction (Verified 17:40) Redness of Skin Warfarin [From Coumadin] Adverse Reaction (Verified 10/15/16 17:40) Headache All Systems PM: A 10-system review of systems was performed and is negative for pertinent findings except as documented above in the HPI. - Constitutional Constitutional: no anorexia, no chills, no fever(s) - EENT Eyes: no change in vision Ears: no decreased hearing Nose, mouth and throat: no dysphagia, no odynophagia - Cardiovascular Cardiovascular ROS IM: as per HPI, chest pain (Chronic substernal chest pressure ), palpitations, no diaphoresis, no edema, no syncope - Respiratory Respiratory: no cough, no dyspnea, no hemoptysis - Gastrointestinal Gastrointestinal: abdominal pain (Right suprapubic area and left lower quadrant) , no diarrhea, no hematochezia, no melena, no nausea, no vomiting - Genitourinary Genitourinary: no difficulty urinating, no dysuria, no hematuria - Integumentary Integumentary IM: no pruritus, no rash - Neurological Neurological ROS: no focal weakness, no numbness, no tingling - Hematologic/Lymphatic Hematologic/Lymphatic: no easy bleeding - Constitutional Vitals: Temp Pulse Resp BP Pulse Ox 98.2 F 81 16 107/75 95 10/15/16 17:10 10/15/16 17:10 10/15/16 17:10 10/15/16 17:10 10/15/16 17:10 General appearance: Present: cooperative, A&O X 3, no acute distress, answers questions appropriately - Head Head exam: Present: atraumatic, normocephalic - Eye Eye exam: Present: EOMI, PERRL, conjuntiva pink, sclera anicteric - Neck Neck exam general surgery: Present: supple, trachea midline. Absent: lymphadenopathy - Respiratory Respiratory exam: Present: CTAB. Absent: accessory muscle use, rales, rhonchi, wheezes - Cardiovascular Cardiovascular exam: Present: RRR, +S1, +S2. Absent: diastolic murmur, gallop, rubs, systolic murmur Additional comments: Substernal chest pressure reproducible with palpation. - GI/Abdominal GI/Abdominal exam: Present: normal bowel sounds, soft, tenderness (LLQ abd pain and ), no peritoneal signs. Absent: distended - Extremities Exam Extremities exam: Present: warm, radial pulses palpable and symetrical. Absent : calf tenderness, cyanotic, pedal edema - Neurological Exam Neurological exam: Present: CN II-XII intact, oriented X3, no focal deficits. Absent: pronater drift, facial droop, speech deficit - Skin Skin exam: Present: dry, intact Additional comments: LLQ anterior abdominal bruise with underlying hardening and tenderness to palpation. <Isauro Madsen H - Last Filed: 10/15/16 20:42> Date of Encounter: 10/15/16 Internal Medicine - H&P: HPI History of present illness: Ms. Concepcion is a 56 year old female All Systems PM: A 10-system review of systems was performed and is negative for pertinent findings except as documented above in the HPI. - Constitutional Vitals: Temp Pulse Resp BP Pulse Ox 98.2 F 81 16 107/75 95 10/15/16 17:10 10/15/16 17:10 10/15/16 17:10 10/15/16 17:10 10/15/16 17:10 - Attending Attestation 1. Chest pain, reproducible likely secondary to costochondritis versus anxiety EKG shows T-wave inversions in day septal and anterior leads that have been present in prior EKGs Trend troponins, continue telemetry, may discharge in the morning if troponins are negative Continue aspirin 2. Hypothyroidism, TSH is 15.8 Increase dose from 75 g To 100 g daily and recheck TSH in 6-7 weeks 3. Leukocytosis nonspecific 4. Right lower extremity DVT, continue Eliquis 5. Left abdominal wall granulomas noticed on CT scan, stable Omeprazole for GI prophylaxis and eliquis for DVT prophylaxis. The patient will be admitted for observation. Full code. Time spent on this admission 40 minutes. I examined this patient and my medical decision-making was reviewed with the Resident Physician. I agree with the documented findings, disposition and treatment plan as described except to the extent set forth below.
--- NOTE | 2016-10-15 20:34 | Event Note ---
Date of Encounter: 10/15/16 Time of Encounter: 20:34 1. Chest pain, reproducible likely secondary to costochondritis versus anxiety EKG shows T-wave inversions in day septal and anterior leads that have been present in prior EKGs Trend troponins, continue telemetry, may discharge in the morning if troponins are negative Continue aspirin 2. Hypothyroidism, TSH is 15.8 Increase dose from 75 g To 100 g daily and recheck TSH in 6-7 weeks 3. Leukocytosis nonspecific 4. Right lower extremity DVT, continue Eliquis 5. Left abdominal wall granulomas noticed on CT scan, stable Omeprazole for GI prophylaxis and eliquis for DVT prophylaxis. The patient will be admitted for observation. Full code. Time spent on this admission 40 minutes.
[2016-10-15 20:37] LABS: Activated Partial Thrombo Time 37.5 Seconds (26.0-36.0)
[2016-10-15] MEDS ORDERED: APIXABAN 5 MG TABLET PO SCH ×2 (21:00→22:30)
[2016-10-15] MEDS ORDERED: Famotidine 20 MG TABLET PO SCH (21:00)
[2016-10-15] MEDS: METOPROLOL SUCCINATE PO SCH (21:46)
[2016-10-15] MEDS: HCTZ PO SCH (21:46)
[2016-10-15] MEDS: APIXABAN 5 MG TABLET PO SCH (23:02)
[2016-10-15] MEDS ORDERED: Fluconazole 100 MG TABLET PO ONE (23:44)
[2016-10-16 03:27] LABS: Hematocrit 36.6 % (35.3-44.9); Hemoglobin 11.8 g/dL (11.5-15.4); Mean Corpuscular HGB Conc 32.2 g/dL (31.6-35.5); Mean Corpuscular Hemoglobin 29.2 pg (28.0-33.3); Mean Corpuscular Volume 90.6 fL (83.0-100.0); Mean Platelet Volume 10.9 fL (9.4-12.4); Platelet Count 341 K/mcL (140-400); Red Blood Count 4.04 M/mcL (3.82-4.97); Red Cell Distribution Width 15.9 % (11.5-14.5)
[2016-10-16 06:45] VITALS: BP 106/72
[2016-10-16] MEDS ORDERED: BuPROPion XL (24 HR) 150 MG TABLET PO SCH (09:00)
[2016-10-16] MEDS ORDERED: Aspirin Enteric Coated 81 MG Tablet PO SCH (09:00)
[2016-10-16] MEDS ORDERED: CALCIUM CARBONATE PO SCH (09:00)
[2016-10-16] MEDS ORDERED: VITAMIN D3 PO SCH (09:00)
[2016-10-16] MEDS: APIXABAN 5 MG TABLET PO SCH (09:17)
[2016-10-16] MEDS: HCTZ PO SCH (09:17)
[2016-10-16] MEDS: METOPROLOL SUCCINATE PO SCH (09:17)
--- NOTE | 2016-10-16 09:46 | Discharge Summary ---
Date of Encounter: 10/16/16 Time of Encounter: 09:44 - Discharge Diagnosis (1) Chest pain Priority: Primary Status: Chronic Comments: Troponins negative x 3. EKG changes were consistent with previous ekg. Patient reports chronic chest pain, unchanged from her baseline. Stress test perfusion images from 08/11/16 showed no ischemia or infarct. Qualifiers: Chest pain type: unspecified Qualified Code(s): R07.9 - Chest pain, unspecified (2) CAD (coronary artery disease) Priority: Secondary Status: Chronic Comments: Continue BB, statin and aspirin on discharge. Qualifiers: Coronary Disease-Associated Artery/Lesion type: [place] artery [place] vs. transplanted heart: [place] heart Associated angina: angina presence unspecified Qualified Code(s): I25.10 - Atherosclerotic heart disease of [place] coronary artery without angina pectoris (3) Hypothyroidism Priority: Secondary Status: Chronic Comments: increase dose of Synthroid to 100mcg daily. Follow up with PCP as outpatient. Qualifiers: Hypothyroidism type: acquired Qualified Code(s): E03.9 - Hypothyroidism, unspecified (4) GERD (gastroesophageal reflux disease) Priority: Secondary Status: Chronic Qualifiers: Esophagitis presence: esophagitis presence not specified Qualified Code(s) : K21.9 - Gastro-esophageal reflux disease without esophagitis (5) DVT prophylaxis Priority: Secondary Status: Acute Comments: Patient on Eliquis for recent history of DVT. Continue Eliquis on discharge. - Discharge Medications Prescriptions: Levothyroxine [Synthroid] 100 mcg PO 0630 #30 tablet Home Medications: Aspirin [Lo-Dose Aspirin EC] 81 mg PO DAILY 10/05/16 [History] BuPROPion XL (24 HR) [Wellbutrin Xl] 150 mg PO DAILY 10/05/16 [History] Calcium Carbonate/Vitamin D3 [Calcium 500 + Vit D Caplet] 1 tab PO DAILY [History] Cetirizine HCl [All Day Allergy] 10 mg PO DAILY 10/05/16 [History] Famotidine [Pepcid] 40 mg PO HS 10/05/16 [History] Metoprolol Succinate/Hctz [Dutoprol 25-12.5 mg Tablet] 0.5 tab PO BID 10/05/16 [ History] Pantoprazole Sodium [Protonix] 40 mg PO DAILY 10/05/16 [History] Pravastatin Sodium [Pravachol] 20 mg PO HS 10/05/16 [History] Apixaban [Eliquis] 5 mg PO BID #70 tablet 10/11/16 [Rx] Levofloxacin [Levaquin] 750 mg PO DAILY #3 tablet 10/11/16 [Rx] Apixaban [Eliquis] 5 mg PO BID tab 10/16/16 [Rx] Levothyroxine [Synthroid] 100 mcg PO 0630 #30 tablet 10/16/16 [Rx] Allergies/Adverse Reactions: Allergies codeine Allergy (Verified 10/15/16 11:47) Difficulty Breathing propoxyphene Allergy (Verified 10/15/16 11:47) Difficulty Breathing Sulfa (Sulfonamide Antibiotics) Allergy (Verified 10/15/16 11:47) Difficulty Breathing tramadol Allergy (Verified 10/15/16 11:47) Difficulty Breathing adhesive Adverse Reaction (Verified 10/15/16 17:40) Rash atorvastatin Adverse Reaction (Verified 10/15/16 17:40) Cramping of the Muscles bacitracin [From Neosporin ([id number])] Adverse Reaction (Verified 10/15/16 17:40) Redness of Skin Latex, Natural Rubber Adverse Reaction (Verified 10/15/16 17:40) Rash naproxen Adverse Reaction (Verified 10/15/16 11:47) See Comments blood in stool Neomycin [From Neosporin ([id number])] Adverse Reaction (Verified 10/15/16 17 :40) Redness of Skin polymyxin B [From Neosporin ([id number])] Adverse Reaction (Verified 17:40) Redness of Skin Warfarin [From Coumadin] Adverse Reaction (Verified 10/15/16 17:40) Headache Date of admission: 10/15/16 15:08 Primary care physician: Delonte Guillaume MD Consults: 10/15/16 17:31 Consult to Nutrition [CONS] Routine Comment: Consulting Provider: NUTRITION Reason for Dietary Consult: MST Score Discharging clinician: Marina Buck Anticipated date of discharge: 10/16/16 - Patient Status Disposition: Home, Self-Care Condition: Good Functional capacity at discharge: independent ambulation Overall status at discharge: patient is back to baseline - Discharge Instructions Follow Up With: Delonte Guillaume MD [Primary Care Provider] - Additional Instructions: We have increased your Synthroid dose because your TSH was high. Please follow up with your PCP for further monitoring and adjustment. - Diet and Activity Activity: resume usual activities as tolerated Diet: advance to your usual diet Hospital course: Miriam Concepcion is a 56F with HTN, HLD, CAD, GERD, hypothyroidism and recent diagnosis of DVT presented to ED with complaints of bruising to LLQ, which was found to be related to recent lovenox injection. While in ED, EKG was performed and there were some suspected changes. Patient admitted for ACS rule out. On review of EKGs, it was consistent with previous EKG from 2013. Patient does report chronic chest pain unchanged from her baseline. Stress test perfusion images from 08/11/16 showed no ischemia or infarct. Troponins were negative x 3, patient not reporting any increased chest pain, shortness of breath, or palpitations. TSH found to be elevated. Synthroid increased to 100mcg daily and patient to follow up with her PCP for managment. Labs are stable, vital signs are stable. Patient is appropriate and stable for discharge. - Time Spent with Patient Total time spent providing and/or coordinating discharge services: - Constitutional Vitals: Temp Pulse Resp BP Pulse Ox 98.2 F 83 16 106/72 93 10/16/16 06:41 10/16/16 06:41 10/16/16 06:41 10/16/16 06:41 10/16/16 06:41 General appearance: Present: cooperative, A&O X 3, no acute distress, answers questions appropriately - Head Head exam: Present: atraumatic, normocephalic - Eye Eye exam: Present: PERRL, conjuntiva pink, sclera anicteric Pupils: Present: PERRL - Neck Neck exam general surgery: Present: supple, trachea midline. Absent: lymphadenopathy - Respiratory Respiratory exam: Present: CTAB. Absent: accessory muscle use, rales, rhonchi, wheezes - Cardiovascular Cardiovascular exam: Present: RRR, +S1, +S2. Absent: diastolic murmur, gallop, rubs, systolic murmur - GI/Abdominal GI/Abdominal exam: Present: normal bowel sounds, soft, no peritoneal signs. Absent: distended, tenderness - Extremities Exam Extremities exam: Present: warm, radial pulses palpable and symetrical. Absent : calf tenderness, cyanotic, pedal edema - Neurological Exam Neurological exam: Present: CN II-XII intact, oriented X3, no focal deficits. Absent: facial droop, speech deficit - Skin Skin exam: Present: dry, intact
--- NOTE | 2016-10-17 15:10 | Electrocardiograph Report ---
[address] [place] [id number] Test Date: 2016-10-15 Pat Name: Miriam Concepcion Department: [id number] Room: 3A45 Gender: F Patient Scheduler: : 1960 Requested By: Larissa Lazaro Order Number: [id number] Reading MD: Tara Morrow Measurements Intervals [place] Rate: 71 P: 24 UT: 156 QRS: -3 QRSD: 107 T: -2 QT: 408 QTc: 430 Interpretive Statements SINUS RHYTHM ST DEVIATION AND MODERATE T-WAVE ABNORMALITY, CONSIDER ANTERIOR ISCHEMIA LOW VOLTAGE LIMB LEADS Electronically Signed On 10-16-2016 12:11:39 EDT by Tara Morrow
== END 2016-10-16 12:16 | disposition home or self-care (01) ==
LOC: EMEROO 11:40 → 3ANU 11:40
PROVIDERS: ADMIT Nurse Practitioner Family; ATTEND Family Medicine